=== PATIENT | male | born 1945 | race Caucasian/White ===

== ENCOUNTER 2017-03-11 09:02 | Inpatient (IN) | payer OTHER ==
[~2017-03-11] VITALS: Ht 170.2 cm; Wt 90.5 kg
[~2017-03-11 09:02] MED LIST: CSD50 PO; FLM4 PO; NRV5 PO; TYL325X PO; ULT50X PO
[2017-03-11] MEDS ORDERED: ONDANSETRON INJ 2 MG/ML 2 ML VIAL IV STA (09:52)
[2017-03-11] MEDS ORDERED: SODIUM CHLORIDE 0.9% 1000ML 1,000 ML IV STA (09:52)
[2017-03-11] MEDS ORDERED: CEFTRIAXONE SOD INJ 1 GM ADDVIAL IV STA (09:52)
[2017-03-11] MEDS ORDERED: LSX20 PO (09:55)
[2017-03-11 10:08] LABS: BASO % 0.5 %; BASO ABS # 0.02 K/uL (0-0.2); COMPLETE YES; EOS % 0.5 %; HEMATOCRIT 36.5 % (42-52); IG% 0.5 %; LYMPH % 18.1 %; MEAN CELL VOLUME 84.9 fL (80-100); MEAN CORPUSCULAR HEMOGLOBIN 29.5 pg (25-34); MEAN CORPUSCULAR HGB CONC 34.8 g/dl (32-36); MEAN PLATELET VOLUME 11.4 fL (7.4-10.4); MONO % 9.5 %; NEUT % 70.9 %; PLATELET COUNT 136 K/uL (130-400); WHITE BLOOD COUNT 4.41 K/uL (4.8-10.8)
[2017-03-11] MEDS ORDERED: OPTIRAY 320 IV PRN (10:15)
[2017-03-11 10:16] LABS: ALT/SGPT 61 U/L (12-78); BLOOD UREA NITROGEN 15 mg/dl (7-18); BUN/CREATININE RATIO 11.5 (10-20); CALCIUM 8.9 mg/dl (8.5-10.1); CARBON DIOXIDE 22 mmol/L (21-32); CHLORIDE 101 mmol/L (98-107); GLUCOSE 160 mg/dl (70-99); POTASSIUM 3.8 mmol/L (3.5-5.1); SODIUM 131 mmol/L (136-145)
[2017-03-11 10:19] LABS: ALKALINE PHOSPHATASE 63 U/L (45-117); AST/SGOT 57 U/L (15-37)
[2017-03-11 11:18] LABS: URINE APPEARANCE CLEAR (CLEAR); URINE BILIRUBIN NEG (NEG); URINE COLOR DK YELLOW; URINE EPITHELIAL CELL AUTO >30 /lpf (0-5); URINE NITRITE NEG (NEG); URINE PH 5.5 (4.5-7.5); URINE SPECIFIC GRAVITY 1.024 (1.000-1.030); UROBILINOGEN NEG (NEG); ZZURINE CULT IF INDIC CATH NO
[2017-03-11 11:26] LABS: MANUAL MICROSCOPIC REQUIRED? NO; REVIEW REQ? YES
--- NOTE | 2017-03-11 11:34 | DIAGNOSTIC IMAGING REPORT ---
CT SCAN OF THE ABDOMEN AND PELVIS WITH IV CONTRAST CLINICAL HISTORY: Generalized abdominal pain. COMPARISON STUDY: Abdominal CT dated 04/05/2016. TECHNIQUE: Following the IV administration of 92 cc of Optiray 320, CT scan of the abdomen and pelvis is performed from the lung bases to the proximal femora. Images are reviewed in the axial, sagittal, and coronal planes. IV contrast was administered without complication. Automated dose control exposure was utilized. A dose lowering technique was utilized adhering to the principles of ALARA. CT DOSE: 741.06 mGy.cm FINDINGS: Lung bases: The heart is normal in size and without pericardial effusion. There are coronary artery calcifications. There are scattered calcified granulomas. No airspace consolidation or pleural effusion is seen at the lung bases. Calcified mediastinal lymph nodes are partially imaged. There is a tiny hiatal hernia. Liver: The contrast-enhanced liver is enlarged, measuring 22.4 cm in length. The liver demonstrates diffusely diminished attenuation consistent with severe hepatic steatosis. There is no intrahepatic biliary ductal dilatation. The hepatic veins and portal veins are patent. Gallbladder: There are numerous calcified gallstones. Spleen: Normal in size and attenuation. There are calcified splenic granulomas. Pancreas: Unremarkable. Adrenal glands: Unremarkable. Kidneys: The contrast enhanced kidneys demonstrate mild cortical atrophy and are without hydronephrosis. The kidneys enhance symmetrically. Bilateral renal cysts measure up to 4.9 cm. Additional subcentimeter cortical hypodensities also likely represent cysts but are too small for definitive characterization. There is bilateral perinephric stranding, right greater than left. Trace perinephric fluid is seen on the right. Abdominal vasculature: The abdominal aorta is normal in course and caliber noting mild atherosclerotic calcification. Bowel: The small bowel and colon are normal in course and caliber. The appendix is well-visualized and normal. Peritoneum: There is no intraperitoneal free air or abdominal ascites. Lymphadenopathy: Right pelvic sidewall lymphadenopathy is identified. A node on image #[id number] measures 1.9 cm in short axis. No retroperitoneal lymphadenopathy is seen. Pelvic viscera: The bladder is decompressed around a Kumari catheter. Foci of intraluminal gas are noted and likely wall thickening is nonspecific. The prostate gland is heterogeneous. Skeletal structures: The skeletal structures are osteopenic. There is moderate lumbosacral spondylosis and scoliosis. 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 The largest lesions are seen in the bodies of T12, L2, and L4. Lesions are also seen in the lower ribs, in the bony pelvis. IMPRESSION: 1. The bladder is decompressed around a Kumari catheter. Bladder wall thickening is nonspecific and there are foci of intraluminal gas which may be related to instrumentation. Correlate clinically and with urinalysis for evidence of cystitis. 2. There is bilateral perinephric stranding, right greater than left as well as trace perinephric fluid. Correlate clinically and with urinalysis for evidence of ascending urinary tract infection. 3. 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 4. There is right pelvic sidewall lymphadenopathy. Retroperitoneal lymphadenopathy has improved from 04/05/2016. 5. Hepatomegaly and severe hepatic steatosis. 6. Cholelithiasis. 7. Additional findings as above. Electronically signed by: Jose Antonio Baez M.D. 03/11/2017 11:32 AM Dictated Date/Time: 03/11/2017 11:03 AM
[2017-03-11 12:18] VITALS: O2SAT 94; Ht 170.2 cm; Wt 90.5 kg
--- NOTE | 2017-03-11 12:31 | History and Physical ---
History & Physical Date & Time of Service: Mar 11, 2017 at 12:26 Chief Complaint: Gall Stone,Kidney Pain Primary Care Physician: Adiel Graff D.O. History of Present Illness Source: patient 72 y/o M Hx prostate CA which is untreated, chronic urinary outlet obstruction and an indwelling Kumari. Pt presents with progressive abdominal pain, unconfirmed fevers and nausea with poor PO intake. Imaging Past Medical/Surgical History Medical Problems: (1) Prostate cancer Status: Chronic Family History Hypertension Kidney disease Kidney stones Social History Smoking Status: Never Smoker Drug Use: none Marital Status: Occupational Status: employed Allergies Coded Allergies: No Known Allergies (Unverified , 03/11/17) Home Medications Scheduled Furosemide (Furosemide), 20 MG PO DAILY Physical Exam Vital Signs Date Time Temp Pulse Resp B/P (MAP) Pulse Ox O2 Delivery O2 Flow Rate FiO2 03/11/17 10:34 73 26 116/65 94 03/11/17 09:05 36.9 87 18 125/75 95 Room Air Diagnostics Laboratory Results Results Past 24 Hours Test 03/11/17 09:25 03/11/17 10:14 03/11/17 11:05 Range/Units White Blood Count 4.41 4.8-10.8 K/uL Red Blood Count 4.30 4.7-6.1 M/uL Hemoglobin 12.7 14.0-18.0 g/dL Hematocrit 36.5 42-52 % Mean Corpuscular Volume 84.9 80-100 fL Mean Corpuscular Hemoglobin 29.5 25-34 pg Mean Corpuscular Hemoglobin Concent 34.8 32-36 g/dl Platelet Count 136 130-400 K/uL Mean Platelet Volume 11.4 7.4-10.4 fL Neutrophils (%) (Auto) 70.9 % Lymphocytes (%) (Auto) 18.1 % Monocytes (%) (Auto) 9.5 % Eosinophils (%) (Auto) 0.5 % Basophils (%) (Auto) 0.5 % Neutrophils # (Auto) 3.13 1.4-6.5 K/uL Lymphocytes # (Auto) 0.80 1.2-3.4 K/uL Monocytes # (Auto) 0.42 0.11-0.59 K/uL Eosinophils # (Auto) 0.02 0-0.5 K/uL Basophils # (Auto) 0.02 0-0.2 K/uL RDW Standard Deviation 41.6 36.4-46.3 fL RDW Coefficient of Variation 13.4 11.5-14.5 % Immature Granulocyte % (Auto) 0.5 % Immature Granulocyte # (Auto) 0.02 0.00-0.02 K/uL Sodium Level 131 136-145 mmol/L Potassium Level 3.8 3.5-5.1 mmol/L Chloride Level 101 98-107 mmol/L Carbon Dioxide Level 22 21-32 mmol/L Anion Gap 8.0 3-11 mmol/L Blood Urea Nitrogen 15 7-18 mg/dl Creatinine 1.30 0.60-1.40 mg/dl Estimated GFR () 62.3 Estimated GFR (Non- 53.8 BUN/Creatinine Ratio 11.5 10-20 Random Glucose 160 70-99 mg/dl Calcium Level 8.9 8.5-10.1 mg/dl Total Bilirubin 0.5 0.2-1 mg/dl Direct Bilirubin 0.2 0-0.2 mg/dl Aspartate Amino Transf (AST/SGOT) 57 15-37 U/L Alanine Aminotransferase (ALT/SGPT) 61 12-78 U/L Alkaline Phosphatase 63 45-117 U/L Total Protein 7.4 6.4-8.2 gm/dl Albumin 3.1 3.4-5.0 gm/dl Lipase 145 73-393 U/L Bedside Lactic Acid Venous 1.02 0.90-1.70 mmol/L Urine Color DK YELLOW Urine Appearance CLEAR CLEAR Urine pH 5.5 4.5-7.5 Urine Specific [place] 1.024 1.000-1.030 Urine Protein 1+ NEG Urine Glucose (UA) NEG NEG Urine Ketones NEG NEG Urine Occult Blood 1+ NEG Urine Nitrite NEG NEG Urine Bilirubin NEG NEG Urine Urobilinogen NEG NEG Urine Leukocyte Esterase SMALL NEG Urine WBC (Auto) 5-10 0-5 /hpf Urine RBC (Auto) 5-10 0-4 /hpf Urine Hyaline Casts (Auto) 5-10 0-5 /lpf Urine Epithelial Cells (Auto) >30 0-5 /lpf Urine Bacteria (Auto) NEG NEG Urine Renal Epithelial Cells 0-5 0-5 /lpf Diagnostic Radiology CT Pelvis 1. The bladder is decompressed around a Kumari catheter. Bladder wall thickening is nonspecific and there are foci of intraluminal gas which may be related to instrumentation. Correlate clinically and with urinalysis for evidence of cystitis. 2. There is bilateral perinephric stranding, right greater than left as well as trace perinephric fluid. Correlate clinically and with urinalysis for evidence of ascending urinary tract infection. 3. 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 4. There is right pelvic sidewall lymphadenopathy. Retroperitoneal lymphadenopathy has improved from 04/05/2016. 5. Hepatomegaly and severe hepatic steatosis. 6. Cholelithiasis. Impression Advanced Directives Existing Living Will: No Existing Power of Nuisance Animal Damage Control Agent: No
[2017-03-11] MEDS ORDERED: MAGNESIUM HYDROXIDE SUSP 30 ML UDC PO PRN (12:45)
[2017-03-11] MEDS ORDERED: ONDANSETRON INJ 2 MG/ML 2 ML VIAL IV PRN (12:45)
[2017-03-11] MEDS ORDERED: POLYETHYLENE (MIRALAX) 17 GM PACK PO PRN (12:45)
[2017-03-11] MEDS ORDERED: ALUMINUM/MAGNESIUM/SIMETH (MAALOX MAX) 30 ML UDC PO PRN (12:45)
--- NOTE | 2017-03-11 12:57 | History and Physical ---
History & Physical Date & Time of Service: Mar 11, 2017 at 12:45 Chief Complaint: Gall Stone,Kidney Pain Primary Care Physician: Adiel Graff D.O. History of Present Illness 72 y/o M Hx prostate CA which is untreated, chronic urinary outlet obstruction and an indwelling Kumari. Pt presents with progressive b/l, lower abdominal and flank pain, unconfirmed fevers and nausea with poor PO intake. A CT abdomen reveals b/l perinephric stranding in addition to confirmed metastatic prostate CA. Past Medical/Surgical History Medical Problems: (1) Prostate cancer Status: Chronic Family History Hypertension Kidney disease Kidney stones Social History Smoking Status: Never Smoker Drug Use: none Marital Status: Occupational Status: employed Allergies Coded Allergies: No Known Allergies (Unverified , 03/11/17) Home Medications Scheduled Furosemide (Furosemide), 20 MG PO DAILY Review of Systems Constitutional: + sweats, No fever, No chills Eyes: No worsening of vision ENT: No hearing loss, No unusual epistaxis, No nasal symptoms Respiratory: No cough, No wheezing Cardiovascular: No chest pain, No orthopnea, No PND Abdomen: + pain, + nausea, + vomiting, No diarrhea Musculoskeletal: + problem reported (BAck/flank pain), No joint pain Genitourinary - Male: + dysuria, No hematuria Neurologic: + weakness, No memory loss, No paralysis Psychiatric: No depression symptoms Endocrine: No fatigue Hematologic / Lymphatic: No abnormal bleeding/bruising Integumentary: No rash Allergic / Immunologic: No environmental allergies Physical Exam Vital Signs Date Time Temp Pulse Resp B/P (MAP) Pulse Ox O2 Delivery O2 Flow Rate FiO2 03/11/17 10:34 73 26 116/65 94 03/11/17 09:05 36.9 87 18 125/75 95 Room Air General Appearance: WD/WN, no apparent distress, + pertinent finding ( overweight elderly male who is hard of hearing) Head: normocephalic Eyes: normal inspection, EOMI ENT: normal ENT inspection, pharynx normal, + nasal congestion Neck: supple, no JVD Respiratory/Chest: chest non-tender, lungs clear, normal breath sounds Cardiovascular: regular rate, rhythm, no edema, no gallop, no JVD, no murmur, normal peripheral pulses Abdomen/GI: normal bowel sounds, soft, + pertinent finding (Tender in lower quadrants bl) Back: normal inspection, + pertinent finding (R sided CVA tenderness ) Extremities/Musculoskelatal: normal inspection Neurologic/Psych: service supervisor II-XII nml as tested, no motor/sensory deficits, alert, normal mood/affect, normal reflexes, oriented x 3 Skin: normal color, warm/dry, no rash Diagnostics Laboratory Results Results Past 24 Hours Test 03/11/17 09:25 03/11/17 10:14 03/11/17 11:05 Range/Units White Blood Count 4.41 4.8-10.8 K/uL Red Blood Count 4.30 4.7-6.1 M/uL Hemoglobin 12.7 14.0-18.0 g/dL Hematocrit 36.5 42-52 % Mean Corpuscular Volume 84.9 80-100 fL Mean Corpuscular Hemoglobin 29.5 25-34 pg Mean Corpuscular Hemoglobin Concent 34.8 32-36 g/dl Platelet Count 136 130-400 K/uL Mean Platelet Volume 11.4 7.4-10.4 fL Neutrophils (%) (Auto) 70.9 % Lymphocytes (%) (Auto) 18.1 % Monocytes (%) (Auto) 9.5 % Eosinophils (%) (Auto) 0.5 % Basophils (%) (Auto) 0.5 % Neutrophils # (Auto) 3.13 1.4-6.5 K/uL Lymphocytes # (Auto) 0.80 1.2-3.4 K/uL Monocytes # (Auto) 0.42 0.11-0.59 K/uL Eosinophils # (Auto) 0.02 0-0.5 K/uL Basophils # (Auto) 0.02 0-0.2 K/uL RDW Standard Deviation 41.6 36.4-46.3 fL RDW Coefficient of Variation 13.4 11.5-14.5 % Immature Granulocyte % (Auto) 0.5 % Immature Granulocyte # (Auto) 0.02 0.00-0.02 K/uL Sodium Level 131 136-145 mmol/L Potassium Level 3.8 3.5-5.1 mmol/L Chloride Level 101 98-107 mmol/L Carbon Dioxide Level 22 21-32 mmol/L Anion Gap 8.0 3-11 mmol/L Blood Urea Nitrogen 15 7-18 mg/dl Creatinine 1.30 0.60-1.40 mg/dl Estimated GFR () 62.3 Estimated GFR (Non- 53.8 BUN/Creatinine Ratio 11.5 10-20 Random Glucose 160 70-99 mg/dl Calcium Level 8.9 8.5-10.1 mg/dl Total Bilirubin 0.5 0.2-1 mg/dl Direct Bilirubin 0.2 0-0.2 mg/dl Aspartate Amino Transf (AST/SGOT) 57 15-37 U/L Alanine Aminotransferase (ALT/SGPT) 61 12-78 U/L Alkaline Phosphatase 63 45-117 U/L Total Protein 7.4 6.4-8.2 gm/dl Albumin 3.1 3.4-5.0 gm/dl Lipase 145 73-393 U/L Bedside Lactic Acid Venous 1.02 0.90-1.70 mmol/L Urine Color DK YELLOW Urine Appearance CLEAR CLEAR Urine pH 5.5 4.5-7.5 Urine Specific [place] 1.024 1.000-1.030 Urine Protein 1+ NEG Urine Glucose (UA) NEG NEG Urine Ketones NEG NEG Urine Occult Blood 1+ NEG Urine Nitrite NEG NEG Urine Bilirubin NEG NEG Urine Urobilinogen NEG NEG Urine Leukocyte Esterase SMALL NEG Urine WBC (Auto) 5-10 0-5 /hpf Urine RBC (Auto) 5-10 0-4 /hpf Urine Hyaline Casts (Auto) 5-10 0-5 /lpf Urine Epithelial Cells (Auto) >30 0-5 /lpf Urine Bacteria (Auto) NEG NEG Urine Renal Epithelial Cells 0-5 0-5 /lpf Diagnostic Radiology CT abdomen 1. The bladder is decompressed around a Kumari catheter. Bladder wall thickening is nonspecific and there are foci of intraluminal gas which may be related to instrumentation. Correlate clinically and with urinalysis for evidence of cystitis. 2. There is bilateral perinephric stranding, right greater than left as well as trace perinephric fluid. Correlate clinically and with urinalysis for evidence of ascending urinary tract infection. 3. 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 4. There is right pelvic sidewall lymphadenopathy. Retroperitoneal lymphadenopathy has improved from 04/05/2016. 5. Hepatomegaly and severe hepatic steatosis. 6. Cholelithiasis. Impression Assessment and Plan 72 y/o M Hx prostate CA which is untreated, chronic urinary outlet obstruction and an indwelling Kumari. Pt presents with progressive b/l, lower abdominal and flank pain, unconfirmed fevers and nausea with poor PO intake. A CT abdomen reveals b/l perinephric stranding in addition to confirmed metastatic prostate CA. 1) Possible b/l pyelonephritis - he does not have a white count or fever although he does have b/l flank arredondo and a marginally + UA. He had complained of nausea and vomiting so that we will place him on IV antibiotics pending culture results. He has a functional chronic Kumari. He missed a recent Urology appt and has requested to see his urologist who we have consulted. 2) Prostate CA - has decided not to treat this. 3) HTN - Pt takes daily Lasix only - this is held as he is receiving IVF. Full code - Heparin prophylaxis Total time for this admit including review of labs, meds, imaging, records - discussion with pt and ER attending - 37 min Advanced Directives Existing Living Will: No Existing Power of Psychiatric Tech: No VTE Prophylaxis VTE Risk Assessment Done? Y/N: Yes Risk Level: Moderate
[2017-03-11 14:21] VITALS: BP 129/71; PULSE 81; TEMP 37.6; O2SAT 93
[2017-03-11] MEDS: SODIUM CHLORIDE 0.9% 1000ML 1,000 ML IV SCH ×2 (14:30→23:03)
--- NOTE | 2017-03-11 15:16 | EMERGENCY ROOM VISIT NOTE ---
History Report prepared by Jayesh: Adore Wright Under the Supervision of: Dr. Eric Tellez D.O. First contact with patient: 09:34 Chief Complaint: ABDOMINAL PAIN Stated Complaint: GALL STONE,KIDNEY PAIN Nursing Triage Summary: pt c/o right lower quad pain and bilateral flank pain, pt has a indwelling cath that has been having less output History of Present Illness The patient is a 72 year old male who presents to the Emergency Room with complaints of worsening upper abdominal pain for the past few days. The patient states that he has been evaluated for this pain in the past. He had a CT scan done about a year ago that revealed gallstones. He states that he has "not been feeling well for some time," but over the past few days he has been more nauseated. He has not been eating much and he has had intermittent vomiting. He has been diaphoretic but has not checked his temperature. The patient states that his last bowel movement was 2-3 days ago. Pt denies headache, rhinorrhea, cough, fevers, chest pain, diarrhea, pain with urination, and melena. He has chronic shortness of breath, but denies any new shortness of breath. The patient has a history of prostate cancer. He is not receiving any chemotherapy for this cancer. He has a chronic indwelling catheter which he typically changes himself every 4 weeks. He most recently changed this catheter 2 weeks ago. Source of History: patient Onset: a few days ago Position: abdomen Timing: worsening Associated Symptoms: + diaphoresis, + nausea, + vomiting, No fevers, No headache, No cough, No chest pain, No SOB, No melena, No diarrhea, No urinary symptoms Review of Systems See HPI for pertinent positives & negatives. A total of 10 systems reviewed and were otherwise negative. 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 (7) Pyelonephritis e Family History Hypertension Kidney disease Kidney stones Social History Smoking Status: Never Smoker Drug Use: none Marital Status: Housing Status: lives with family Occupation Status: employed Current/Historical Medications Scheduled Furosemide (Furosemide), 20 MG PO DAILY Allergies Coded Allergies: No Known Allergies (Unverified , 03/11/17) Physical Exam Vital Signs Date Time Temp Pulse Resp B/P (MAP) Pulse Ox O2 Delivery O2 Flow Rate FiO2 03/11/17 12:18 94 Room Air 03/11/17 10:34 73 26 116/65 94 03/11/17 09:05 36.9 87 18 125/75 95 Room Air Physical Exam GENERAL: alert, sitting up in bed, disheveled, slightly ill appearing, well nourished, no distress, non-toxic EYE EXAM: normal conjunctiva OROPHARYNX: no exudate, no erythema, lips, buccal mucosa, and tongue normal and mucous membranes are moist NECK: supple, no nuchal rigidity, no adenopathy, non-tender LUNGS: Clear to auscultation. Normal chest wall mechanics HEART: no murmurs, S1 normal and S2 normal ABDOMEN: abdomen soft, tender to palpation in the bilateral upper abdomen, normo -active bowel sounds, no masses, no rebound or guarding. : Normal external genitalia, uncircumcised. Kumari in place with sediment in Kumari bag. BACK: Back is symmetrical on inspection and there is no deformity, no midline tenderness, no CVA tenderness. SKIN: no rashes and no bruising UPPER EXTREMITIES: upper extremities are grossly normal. LOWER EXTREMITIES: No pitting edema. NEURO EXAM: Normal sensorium, cranial nerves II-XII grossly intact, normal speech, no gross weakness of arms, no gross weakness of legs. Medical Decision & Procedures ER Provider Diagnostic Interpretation: Radiology results as stated below per my review and the radiologist's interpretation: CT SCAN OF THE ABDOMEN AND PELVIS WITH IV CONTRAST CLINICAL HISTORY: Generalized abdominal pain. COMPARISON STUDY: Abdominal CT dated 04/05/2016. TECHNIQUE: Following the IV administration of 92 cc of Optiray 320, CT scan of the abdomen and pelvis is performed from the lung bases to the proximal femora. Images are reviewed in the axial, sagittal, and coronal planes. IV contrast was administered without complication. Automated dose control exposure was utilized. A dose lowering technique was utilized adhering to the principles of ALARA. CT DOSE: 741.06 mGy.cm FINDINGS: Lung bases: The heart is normal in size and without pericardial effusion. There are coronary artery calcifications. There are scattered calcified granulomas. No airspace consolidation or pleural effusion is seen at the lung bases. Calcified mediastinal lymph nodes are partially imaged. There is a tiny hiatal hernia. Liver: The contrast-enhanced liver is enlarged, measuring 22.4 cm in length. The liver demonstrates diffusely diminished attenuation consistent with severe hepatic steatosis. There is no intrahepatic biliary ductal dilatation. The hepatic veins and portal veins are patent. Gallbladder: There are numerous calcified gallstones. Spleen: Normal in size and attenuation. There are calcified splenic granulomas. Pancreas: Unremarkable. Adrenal glands: Unremarkable. Kidneys: The contrast enhanced kidneys demonstrate mild cortical atrophy and are without hydronephrosis. The kidneys enhance symmetrically. Bilateral renal cysts measure up to 4.9 cm. Additional subcentimeter cortical hypodensities also likely represent cysts but are too small for definitive characterization. There is bilateral perinephric stranding, right greater than left. Trace perinephric fluid is seen on the right. Abdominal vasculature: The abdominal aorta is normal in course and caliber noting mild atherosclerotic calcification. Bowel: The small bowel and colon are normal in course and caliber. The appendix is well-visualized and normal. Peritoneum: There is no intraperitoneal free air or abdominal ascites. Lymphadenopathy: Right pelvic sidewall lymphadenopathy is identified. A node on image #[id number] measures 1.9 cm in short axis. No retroperitoneal lymphadenopathy is seen. Pelvic viscera: The bladder is decompressed around a Kumari catheter. Foci of intraluminal gas are noted and likely wall thickening is nonspecific. The prostate gland is heterogeneous. Skeletal structures: The skeletal structures are osteopenic. There is moderate lumbosacral spondylosis and scoliosis. 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 The largest lesions are seen in the bodies of T12, L2, and L4. Lesions are also seen in the lower ribs, in the bony pelvis. IMPRESSION: 1. The bladder is decompressed around a Kumari catheter. Bladder wall thickening is nonspecific and there are foci of intraluminal gas which may be related to instrumentation. Correlate clinically and with urinalysis for evidence of cystitis. 2. There is bilateral perinephric stranding, right greater than left as well as trace perinephric fluid. Correlate clinically and with urinalysis for evidence of ascending urinary tract infection. 3. 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 4. There is right pelvic sidewall lymphadenopathy. Retroperitoneal lymphadenopathy has improved from 04/05/2016. 5. Hepatomegaly and severe hepatic steatosis. 6. Cholelithiasis. 7. Additional findings as above. Electronically signed by: Jose Antonio Baez M.D. 03/11/2017 11:32 AM Dictated Date/Time: 03/11/2017 11:03 AM Laboratory Results 03/11/17 09:25 Red Blood Count 4.30, Mean Corpuscular Volume 84.9, Mean Corpuscular Hemoglobin 29.5, Mean Corpuscular Hemoglobin Concent 34.8, Mean Platelet Volume 11.4, Neutrophils (%) (Auto) 70.9, Lymphocytes (%) (Auto) 18.1, Monocytes (%) (Auto) 9.5, Eosinophils (%) (Auto) 0.5, Basophils (%) (Auto) 0.5, Neutrophils # (Auto) 3.13, Lymphocytes # (Auto) 0.80, Monocytes # (Auto) 0.42, Eosinophils # (Auto) 0.02, Basophils # (Auto) 0.02 03/11/17 09:25 Test 03/11/17 09:25 03/11/17 10:14 03/11/17 11:05 White Blood Count 4.41 K/uL (4.8-10.8) Red Blood Count 4.30 M/uL (4.7-6.1) Hemoglobin 12.7 g/dL (14.0-18.0) Hematocrit 36.5 % (42-52) Mean Corpuscular Volume 84.9 fL (80-100) Mean Corpuscular Hemoglobin 29.5 pg (25-34) Mean Corpuscular Hemoglobin Concent 34.8 g/dl (32-36) Platelet Count 136 K/uL (130-400) Mean Platelet Volume 11.4 fL (7.4-10.4) Neutrophils (%) (Auto) 70.9 % Lymphocytes (%) (Auto) 18.1 % Monocytes (%) (Auto) 9.5 % Eosinophils (%) (Auto) 0.5 % Basophils (%) (Auto) 0.5 % Neutrophils # (Auto) 3.13 K/uL (1.4-6.5) Lymphocytes # (Auto) 0.80 K/uL (1.2-3.4) Monocytes # (Auto) 0.42 K/uL (0.11-0.59) Eosinophils # (Auto) 0.02 K/uL (0-0.5) Basophils # (Auto) 0.02 K/uL (0-0.2) RDW Standard Deviation 41.6 fL (36.4-46.3) RDW Coefficient of Variation 13.4 % (11.5-14.5) Immature Granulocyte % (Auto) 0.5 % Immature Granulocyte # (Auto) 0.02 K/uL (0.00-0.02) Anion Gap 8.0 mmol/L (3-11) Estimated GFR () 62.3 Estimated GFR (Non- 53.8 BUN/Creatinine Ratio 11.5 (10-20) Calcium Level 8.9 mg/dl (8.5-10.1) Total Bilirubin 0.5 mg/dl (0.2-1) Direct Bilirubin 0.2 mg/dl (0-0.2) Aspartate Amino Transf (AST/SGOT) 57 U/L (15-37) Alanine Aminotransferase (ALT/SGPT) 61 U/L (12-78) Alkaline Phosphatase 63 U/L (45-117) Total Protein 7.4 gm/dl (6.4-8.2) Albumin 3.1 gm/dl (3.4-5.0) Lipase 145 U/L (73-393) Bedside Lactic Acid Venous 1.02 mmol/L (0.90-1.70) Urine Color DK YELLOW Urine Appearance CLEAR (CLEAR) Urine pH 5.5 (4.5-7.5) Urine Specific [place] 1.024 (1.000-1.030) Urine Protein 1+ (NEG) Urine Glucose (UA) NEG (NEG) Urine Ketones NEG (NEG) Urine Occult Blood 1+ (NEG) Urine Nitrite NEG (NEG) Urine Bilirubin NEG (NEG) Urine Urobilinogen NEG (NEG) Urine Leukocyte Esterase SMALL (NEG) Urine WBC (Auto) 5-10 /hpf (0-5) Urine RBC (Auto) 5-10 /hpf (0-4) Urine Hyaline Casts (Auto) 5-10 /lpf (0-5) Urine Epithelial Cells (Auto) >30 /lpf (0-5) Urine Bacteria (Auto) NEG (NEG) Urine Renal Epithelial Cells 0-5 /lpf (0-5) Laboratory results per my review. Medications Administered Medications (Trade) Dose Ordered Sig/Brea Route Start Time Stop Time Status Last Admin Dose Admin Ceftriaxone Sodium (Rocephin Inj) 1 gm NOW STAT IV 03/11/17 09:52 03/11/17 09:54 DC 03/11/17 10:31 1 GM Sodium Chloride 1,000 ml @ 999 mls/hr Q1H1M STAT IV 03/11/17 09:52 03/11/17 10:52 DC 03/11/17 10:30 999 MLS/HR Ondansetron HCl (Zofran Inj) 4 mg NOW STAT IV 03/11/17 09:52 03/11/17 09:54 DC 03/11/17 10:31 4 MG ED Course ED COURSE: Vital signs were reviewed and showed normal. The patients medical record was reviewed The above diagnostic studies were performed and reviewed. ED treatments and interventions as stated above. 0940: The patient was evaluated in room A4B. A complete history and physical examination was performed. 0952: Zofran 4 mg IV, NSS 1000 ml @ 999 mls/hr IV, Rocephin 1 gm IV 1124: I updated the patient and his family. 1156: Upon reevaluation, the patient is resting comfortably. I discussed my findings with the patient and he understands and agrees with the treatment plan. Based on the patients age, coexisting illnesses, exam and lab findings the decision to treat as an inpatient was made. The patient remained stable while under my care. The patient will be evaluated for further management. 1159: I spoke with Dr. Ivory. We discussed the patient's case. The patient will be evaluated by the [facility] for further management. Medical Decision Differential diagnoses includes but is not limited to gastritis, peptic ulcer disease, GERD, gallbladder disease, pancreatitis, small bowel obstruction, acute coronary syndrome, pericarditis, ischemic bowel, irritable bowel disease, irritable bowel syndrome, appendicitis, diverticulitis, malignancy, hernia, urinary tract infection, torsion, perforation, trauma, infectious. Patient is a 72-year-old male since the ER for chills associated with diffuse weakness and mild back pain. Notes of the back pain is new and located on both sides of his lower back. He does have a chronic indwelling Kumari. CBC shows a white count 4000. BMP all LFTs, bilirubin lipase is unremarkable. UA has esterase or white cells but a large amount of epithelial cells. CT shows stranding around the bilateral kidneys. He does complain of back pain associated with chills. With the indwelling Kumari favor this is most suggestive of pyelonephritis. Patient was updated at bedside. He was given fluids and Rocephin. He is admitted to internal medicine for further workup. Medication Reconcilliation Current Medication List: was personally reviewed by me Blood Pressure Screening Patient's blood pressure: Normal blood pressure Consults Time Called: 1155 Consulting Physician: Dr. Ivory Returned Call: [address] Ivory. We discussed the patient's case. The patient will be evaluated by the [facility] for further management. Impression Primary Impression: Pyelonephritis Scribe Attestation The scribe's documentation has been prepared under my direction and personally reviewed by me in its entirety. I confirm that the note above accurately reflects all work, treatment, procedures, and medical decision making performed by me. Departure Information Dispostion Being Evaluated By Hospitalist Adiel Cat D.O. (PCP) Patient Instructions My [facility]
[2017-03-11 15:32] LABS: INR 1.1 (0.9-1.1)
[2017-03-11 15:59] VITALS: BP 105/64; PULSE 88; TEMP 38; O2SAT 94
[2017-03-11] MEDS: HEPARIN SOD 5000 UNIT/0.5 ML CARP SQ SCH ×2 (17:08→23:05)
[2017-03-11 17:44] VITALS: TEMP 38.2
[2017-03-11] MEDS: ACETAMINOPHEN 325 MG TAB PO PRN ×2 (17:45→23:22)
[2017-03-11 19:27] VITALS: BP 98/62; PULSE 82; TEMP 37.5; O2SAT 92
[2017-03-12 00:01] VITALS: BP 113/68; PULSE 72; TEMP 37.8; O2SAT 95
[2017-03-12 03:57] VITALS: BP 97/64; PULSE 67; TEMP 37.2; O2SAT 95
[2017-03-12 06:41] LABS: HEMATOCRIT 35.6 % (42-52); MEAN CORPUSCULAR HEMOGLOBIN 29.2 pg (25-34); MEAN PLATELET VOLUME 11.1 fL (7.4-10.4); PLATELET COUNT 112 K/uL (130-400); RED BLOOD COUNT 4.14 M/uL (4.7-6.1); WHITE BLOOD COUNT 4.69 K/uL (4.8-10.8)
[2017-03-12 07:03] LABS: BUN/CREATININE RATIO 12.1 (10-20); CALCIUM 8.4 mg/dl (8.5-10.1); CREATININE 1.1 mg/dl (0.60-1.40); MAGNESIUM 2.2 mg/dl (1.8-2.4); POTASSIUM 3.9 mmol/L (3.5-5.1)
[2017-03-12] MEDS: ACETAMINOPHEN 325 MG TAB PO PRN ×2 (07:48→15:43)
[2017-03-12] MEDS: HEPARIN SOD 5000 UNIT/0.5 ML CARP SQ SCH ×2 (07:54→16:40)
[2017-03-12] MEDS ORDERED: CEFTRIAXONE SOD INJ 1 GM in DEXTROSE 5% ADD-VANTAGE 50ML 50 ML IV SCH (08:00)
[2017-03-12 09:17] VITALS: BP 102/62; PULSE 83; TEMP 37.6; O2SAT 94
[2017-03-12 11:18] VITALS: BP 96/55; PULSE 81; TEMP 37.6; O2SAT 91
[2017-03-12 15:04] VITALS: BP 99/64; PULSE 75; TEMP 37.3; O2SAT 95
[2017-03-12] MEDS ORDERED: MoRPHine SULFATE 4 MG/ML 1 ML CARP\\VIAL IV PRN (16:30)
[2017-03-12] MEDS: SODIUM CHLORIDE 0.9% 1000ML 1,000 ML IV SCH (16:38)
[2017-03-12] MEDS: MoRPHine SULFATE 2 MG/ML CARP IV PRN ×2 (16:40→21:08)
[2017-03-12] MEDS ORDERED: PIPERACILL/TAZOBAC IV 4.5 GM in DEXTROSE 5% 100ML 100 ML IV SCH (17:00)
[2017-03-12] MEDS ORDERED: PIPERACILL/TAZOBAC CONSULT ACTIVE PRN (17:00)
--- NOTE | 2017-03-12 17:44 | Progress Note ---
Subjective Date of Service: Mar 12, 2017. Subjective Upon visiting the patient has family is at the bedside he was cold clammy and slightly diaphoretic he states he is having some back pain. He was able tolerate his intake and only had some Tylenol today for pain control. His pain was 8 out of 10 and was bilateral low back it was dull and achy worse with movement and relieved by resting Problem List Medical Problems: (1) Abdominal pain Status: Acute (2) Bilateral hydronephrosis Status: Acute (3) Bladder outlet obstruction Status: Acute (4) Enlarged prostate Status: Acute (5) Renal failure Status: Acute (6) Renal insufficiency Status: Acute Review of Systems Constitutional: + weakness, No fever, No chills Respiratory: No cough, No shortness of breath, No dyspnea on exertion Cardiac: No chest pain, No edema Abdomen: + pain, No nausea, No vomiting, No diarrhea Musculoskeletal: + joint pain, + muscle pain Male : No dysuria, No urinary frequency (has a Kumari) Objective Vital Signs Date Time Temp Pulse Resp B/P (MAP) Pulse Ox O2 Delivery O2 Flow Rate FiO2 03/12/17 03:57 37.2 67 18 97/64 (75) 95 Room Air 03/12/17 00:01 37.8 72 18 113/68 (83) 95 Room Air 03/12/17 00:01 Room Air 03/11/17 20:00 Room Air 03/11/17 19:27 37.5 82 18 98/62 (74) 92 Room Air 03/11/17 17:44 38.2 03/11/17 15:59 38.0 88 20 105/64 (78) 94 Room Air 03/11/17 14:21 37.6 81 18 129/71 (90) 93 03/11/17 12:44 80 18 147/78 99 Room Air 03/11/17 12:18 94 Room Air 03/11/17 10:34 73 26 116/65 94 Physical Exam General Appearance: WD/WN, + moderate distress, + obese Eyes: PERRL, EOMI Respiratory/Chest: chest non-tender, lungs clear, + decreased breath sounds ( due to pain) Cardiovascular: regular rate, rhythm, no murmur Abdomen: normal bowel sounds, soft, + tenderness (to palpation) Extremities: no pedal edema, no calf tenderness Neurologic/Psychiatric: alert, oriented x 3 Skin: normal color, warm/dry, no rash Laboratory Results Last 24 Hours Test 03/11/17 09:25 03/11/17 10:14 03/11/17 11:05 03/12/17 06:15 White Blood Count 4.41 K/uL 4.69 K/uL Red Blood Count 4.30 M/uL 4.14 M/uL Hemoglobin 12.7 g/dL 12.1 g/dL Hematocrit 36.5 % 35.6 % Mean Corpuscular Volume 84.9 fL 86.0 fL Mean Corpuscular Hemoglobin 29.5 pg 29.2 pg Mean Corpuscular Hemoglobin Concent 34.8 g/dl 34.0 g/dl Platelet Count 136 K/uL 112 K/uL Mean Platelet Volume 11.4 fL 11.1 fL Neutrophils (%) (Auto) 70.9 % Lymphocytes (%) (Auto) 18.1 % Monocytes (%) (Auto) 9.5 % Eosinophils (%) (Auto) 0.5 % Basophils (%) (Auto) 0.5 % Neutrophils # (Auto) 3.13 K/uL Lymphocytes # (Auto) 0.80 K/uL Monocytes # (Auto) 0.42 K/uL Eosinophils # (Auto) 0.02 K/uL Basophils # (Auto) 0.02 K/uL RDW Standard Deviation 41.6 fL 43.8 fL RDW Coefficient of Variation 13.4 % 13.8 % Immature Granulocyte % (Auto) 0.5 % Immature Granulocyte # (Auto) 0.02 K/uL Prothrombin Time 12.0 SECONDS Prothromb Time International Ratio 1.1 Sodium Level 131 mmol/L 135 mmol/L Potassium Level 3.8 mmol/L 3.9 mmol/L Chloride Level 101 mmol/L 105 mmol/L Carbon Dioxide Level 22 mmol/L 24 mmol/L Anion Gap 8.0 mmol/L 6.0 mmol/L Blood Urea Nitrogen 15 mg/dl 13 mg/dl Creatinine 1.30 mg/dl 1.10 mg/dl Estimated GFR () 62.3 76.2 Estimated GFR (Non- 53.8 65.8 BUN/Creatinine Ratio 11.5 12.1 Random Glucose 160 mg/dl 137 mg/dl Calcium Level 8.9 mg/dl 8.4 mg/dl Total Bilirubin 0.5 mg/dl Direct Bilirubin 0.2 mg/dl Aspartate Amino Transf (AST/SGOT) 57 U/L Alanine Aminotransferase (ALT/SGPT) 61 U/L Alkaline Phosphatase 63 U/L Total Protein 7.4 gm/dl Albumin 3.1 gm/dl Lipase 145 U/L Bedside Lactic Acid Venous 1.02 mmol/L Urine Color DK YELLOW Urine Appearance CLEAR Urine pH 5.5 Urine Specific [place] 1.024 Urine Protein 1+ Urine Glucose (UA) NEG Urine Ketones NEG Urine Occult Blood 1+ Urine Nitrite NEG Urine Bilirubin NEG Urine Urobilinogen NEG Urine Leukocyte Esterase SMALL Urine WBC (Auto) 5-10 /hpf Urine RBC (Auto) 5-10 /hpf Urine Hyaline Casts (Auto) 5-10 /lpf Urine Epithelial Cells (Auto) >30 /lpf Urine Bacteria (Auto) NEG Urine Renal Epithelial Cells 0-5 /lpf Est Creatinine Clear Calc Drug Dose 64.2 ml/min Magnesium Level 2.2 mg/dl Assessment and Plan 72 y/o M Hx prostate CA which is untreated, chronic urinary outlet obstruction and an indwelling Kumari. Pt presents with progressive b/l, lower abdominal and flank pain, unconfirmed fevers and nausea with poor PO intake. A CT abdomen reveals b/l perinephric stranding in addition to confirmed metastatic prostate CA. Possible b/l pyelonephritis - IV changed to Zosyn pending culture results. He has a functional chronic Kumari. CT Scan imaging suggestive of b/l pyelonephritis we'll S Dr. Leary about timing of Kumari change patient also has persistent cystic kidneys and may require a prolonged antibiotic course for a complicated UTI present on admission. He had previously seen Dr. Graff for renal failure although his kidney function is good at this time Prostate CA - has decided not to treat this. HTN - Pt takes daily Lasix only - receiving IVF. full code heparin for dvt
[2017-03-12 19:02] VITALS: BP 104/62; PULSE 78; TEMP 37.1; O2SAT 95
[2017-03-12] MEDS: PIPERACILL/TAZOBAC IV 3.375 GM in DEXTROSE 5% 100ML IV SCH (21:07)
[2017-03-13] VITALS (7 sets, daily range): BP systolic 98–109; BP diastolic 53–71; PULSE 75–87; TEMP 36.7–38.4; O2SAT 93–98
[2017-03-13] MEDS: HEPARIN SOD 5000 UNIT/0.5 ML CARP SQ SCH ×3 (01:09→15:41)
[2017-03-13] MEDS: SODIUM CHLORIDE 0.9% 1000ML 1,000 ML IV SCH ×3 (02:30→22:11)
[2017-03-13] MEDS: PIPERACILL/TAZOBAC IV 3.375 GM in DEXTROSE 5% 100ML IV SCH ×3 (06:11→21:38)
[2017-03-13] MEDS: OXYCODONE HCL IR 5 MG TAB (IMMEDIATE RELEASE) PO PRN ×2 (07:38→14:56)
--- NOTE | 2017-03-13 09:22 | Urology Consultation ---
History General Date of Service: Mar 13, 2017. Primary Care Physician: Adiel Graff D.O. Pt seen a urologist before?: Yes (Dr. Yepez) If yes, why?: Prostate cancer History of Present Illness 72 year old male admitted for urinary tract infection pyelonephritis. Reviewed records. He is known to our service for prostate cancer, hx of orchiectomy and was taking casodex which he reports stopping due to stomach upset. He has decided not to seek further treatment and was treating his cancer with herbal remedies. Self changes catheters monthly. About 1 week ago he reports having abdominal pain, decreased appetite, fever, chills. Noted increased sediment in his catheter as well. He changes his catheter regularly without difficulty and changed it 2 weeks ago and reports it was also changed [address] scan shows bilateral kidneys with perinephric stranding, no hydronephrosis or stones. Cysts too small to characterize. Also note probable bone mets. Has had low grade fevers no higher than 38.0 C BP slightly low 90's/60's but stable. White count is normal. Hgb/Hct stable. Baseline creatinine 1.3- today is 1.1 Urine culture is pending. Currently on IV zosyn. Also received a dose of IV Rocephin. His last PSA in June 2016 was 5.26 Problem List Medical Problems: (1) Abdominal pain Status: Acute (2) Bilateral hydronephrosis Status: Acute (3) Bladder outlet obstruction Status: Acute (4) Enlarged prostate Status: Acute (5) Renal failure Status: Acute (6) Renal insufficiency Status: Acute Past History cancer - prostate, hypertension Past Surgical History: other (Orchiectomy) Family History Hypertension Kidney disease Kidney stones Social History Hx Tobacco Use In Past Year?: No Marital status: Occupation status: employed Allergies Coded Allergies: No Known Allergies (Unverified , 03/11/17) Medications Home Medications: Home Meds and Scripts Medications Dose Route/Sig Max Daily Dose Days Date Category Furosemide 20 Mg Tab 20 Mg PO DAILY 03/11/17 Reported Inpatient Medications: Current Inpatient Medications Medications (Trade) Dose Ordered Sig/Brea Route Start Time Stop Time Status Last Admin Dose Admin Ioversol (Optiray 320) 125 ml UD PRN IV 03/11/17 10:15 03/15/17 10:14 Heparin Sodium (Porcine) (Heparin Sq 5000 Unit/0.5ml) 5,000 unit Q8H SQ 03/11/17 16:00 04/10/17 15:59 03/13/17 01:09 5,000 UNIT Acetaminophen (Tylenol Tab) 650 mg Q4H PRN PO 03/11/17 12:45 04/10/17 12:44 03/12/17 15:43 650 MG Al Hydrox/Mg Hydrox/Simethicone (Maalox Max Susp) 15 ml Q4H PRN PO 03/11/17 12:45 04/10/17 12:44 Magnesium Hydroxide (Milk Of Magnesia Susp) 30 ml Q6H PRN PO 03/11/17 12:45 04/10/17 12:44 Polyethylene (Miralax Powder Packet) 17 gm DAILY PRN PO 03/11/17 12:45 04/10/17 12:44 Ondansetron HCl (Zofran Inj) 4 mg Q6H PRN IV 03/11/17 12:45 04/10/17 12:44 Morphine Sulfate (MoRPHine SULFATE INJ) 2 mg Q4H PRN IV 03/12/17 16:30 03/26/17 16:29 03/12/17 21:08 2 MG Morphine Sulfate (MoRPHine SULFATE INJ) 4 mg Q4H PRN IV 03/12/17 16:30 03/26/17 16:29 Sodium Chloride 1,000 ml @ 100 mls/hr Q10H IV 03/12/17 16:30 04/11/17 16:29 03/13/17 02:30 100 MLS/HR Oxycodone HCl (Roxicodone Immediate Rel Tab) 10 mg Q6 PRN PO 03/12/17 16:30 03/26/17 16:29 03/13/17 07:38 10 MG Piperacillin Sod/ Tazobactam Sod (Consult) 1 ea UD PRN N/A 03/12/17 17:00 04/11/17 16:59 Piperacillin Sod/ Tazobactam Sod 3.375 gm/Dextrose 115 ml @ 28.75 mls/ hr Q8H IV 03/12/17 22:00 03/22/17 21:59 03/13/17 06:11 28.75 MLS/HR Review of Systems Review of Systems Constitutional: + fever, + chills Eyes: No blurred vision Neurological: + dizzy Endocrine: No excessive thirst Gastrointestinal: + see HPI, + abdominal pain, + nausea Cardiovascular: No chest pain Respiratory: No shortness of breath Skin: No rash Musculoskeletal: + back pain Blood / Lymphatic: No bleed easily Ears / Nose / Throat: No hearing loss Psychologic / Mental: No nervous, No trouble remembering Male : + urinary retention (chronic), No frequent urination, No painful urination Physical Exam Vital Signs: Vital Signs Past 12 Hours Date Time Temp Pulse Resp B/P (MAP) Pulse Ox O2 Delivery O2 Flow Rate FiO2 03/13/17 07:17 37.3 76 18 99/61 (74) 95 Room Air 03/13/17 04:29 37.1 77 18 102/61 (75) 94 Room Air 03/13/17 00:05 Room Air Physical Exam: General Appearance: WD/WN, no apparent distress ENT: hearing grossly normal Neck: supple, no JVD Respiratory/Chest: lungs clear, normal breath sounds, no respiratory distress, no accessory muscle use Cardiovascular: regular rate, rhythm, no JVD Gastrointestinal: Abdomen: diffuse Extremities: no pedal edema, no calf tenderness Neurologic/Psychiatric: alert, normal mood/affect, oriented x 3 Skin: normal color Assessment & Plan Assessment & Plan Imaging: CT Suspected UTI with pyelonephritis Hx of prostate cancer CT scan shows perinephric stranding no hydro. Note bone mets- discussed results with pt. White count and creatinine are unremarkable. Temp is low grade. Continue IV antibiotics per primary service. Will await urine culture sensitivities- recommend to continue oral antibiotics upon discharge for 10-14 days. No immediate urologic intervention needed at this time. Will check PSA. 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 Last PSA was 5.26 Thank you for allowing us to participate in the care of this pt- we will continue to follow along with primary service.
[2017-03-13] MEDS: ACETAMINOPHEN 325 MG TAB PO PRN (15:30)
--- NOTE | 2017-03-13 19:38 | Progress Note ---
Subjective Date of Service: Mar 13, 2017. Subjective Patient is not feel much better today still having abdominal pains is having less sweating feels clammy he is tolerating diet his pain is mostly no focal in the left side Problem List Medical Problems: (1) Abdominal pain Status: Acute (2) Bilateral hydronephrosis Status: Acute (3) Bladder outlet obstruction Status: Acute (4) Enlarged prostate Status: Acute (5) Renal failure Status: Acute (6) Renal insufficiency Status: Acute Review of Systems Constitutional: + chills, + sweats, + weakness, No fever Respiratory: No cough, No shortness of breath, No dyspnea on exertion Cardiac: No chest pain, No orthopnea, No edema Abdomen: + pain, + diarrhea, No nausea, No vomiting, No constipation Musculoskeletal: + problem reported (pain in his back), No joint pain, No muscle pain Psychiatric: + depression symptoms, No anhedonism Objective Vital Signs Date Time Temp Pulse Resp B/P (MAP) Pulse Ox O2 Delivery O2 Flow Rate FiO2 03/13/17 18:42 36.7 75 17 104/61 (75) 95 Room Air 03/13/17 18:12 36.9 03/13/17 16:47 37.8 03/13/17 16:00 Room Air 03/13/17 15:21 38.4 87 17 98/53 (68) 93 Room Air 03/13/17 08:30 Room Air 03/13/17 07:17 37.3 76 18 99/61 (74) 95 Room Air 03/13/17 04:29 37.1 77 18 102/61 (75) 94 Room Air 03/13/17 00:05 Room Air Physical Exam General Appearance: WD/WN, + mild distress Eyes: PERRL, EOMI Respiratory/Chest: chest non-tender, lungs clear, normal breath sounds Cardiovascular: regular rate, rhythm, no murmur Abdomen: normal bowel sounds, soft, + tenderness (left lower quadrant guarding) Extremities: no pedal edema, no calf tenderness Neurologic/Psychiatric: alert, oriented x 3 Laboratory Results Last 24 Hours Test 03/13/17 09:10 Prostate Specific Antigen 2.300 ng/ml Assessment and Plan 72 y/o M Hx prostate CA which is untreated, chronic urinary outlet obstruction and an indwelling Kumari. Pt presents with progressive b/l, lower abdominal and flank pain, unconfirmed fevers A CT abdomen reveals b/l perinephric stranding concern for pyelonephritis additionally seen metastatic prostate CA. Possible b/l pyelonephritis - IV changed to Zosyn continues to be pending culture results. He has a functional chronic Kumari he was evaluated by urology. CT Scan imaging suggestive of b/l pyelonephritis there is cystic kidneys if pain persists we may reimage the left side to determine if hydronephrosis has worsened. Abdominal pain is increased requiring parenteral opiate therapy Mild loose bowel movements not quite yet diarrhea will follow for concern for C. difficile Previously seen Dr. Graff for renal failure although his kidney function is good at this time Prostate CA -seems to be metastatic at this time HTN -will follow as he's continuing IVF. full code heparin for dvt
[2017-03-14] VITALS (7 sets, daily range): BP systolic 98–123; BP diastolic 59–76; PULSE 77–105; TEMP 37–38.1; O2SAT 92–99
[2017-03-14] MEDS: HEPARIN SOD 5000 UNIT/0.5 ML CARP SQ SCH ×3 (01:14→15:49)
[2017-03-14] MEDS: PIPERACILL/TAZOBAC IV 3.375 GM in DEXTROSE 5% 100ML IV SCH ×3 (06:17→21:43)
[2017-03-14] MEDS: SODIUM CHLORIDE 0.9% 1000ML 1,000 ML IV SCH ×2 (07:48→18:31)
[2017-03-14 08:05] LABS: HEMATOCRIT 31.4 % (42-52); MEAN CELL VOLUME 86.7 fL (80-100); MEAN CORPUSCULAR HEMOGLOBIN 29.6 pg (25-34); MEAN CORPUSCULAR HGB CONC 34.1 g/dl (32-36); MEAN PLATELET VOLUME 11.4 fL (7.4-10.4); PLATELET COUNT 158 K/uL (130-400); RED BLOOD COUNT 3.62 M/uL (4.7-6.1); WHITE BLOOD COUNT 5.81 K/uL (4.8-10.8)
[2017-03-14 08:33] LABS: CREATININE 1.1 mg/dl (0.60-1.40)
--- NOTE | 2017-03-14 09:08 | Progress Note ---
Subjective Date of Service: Mar 14, 2017. Subjective Pt evaluation today including: conversation w/ patient, physical exam, chart review, lab review Voiding: pickens catheter in place Pt continues to feel poorly. General malaise. Low grade fever overnight. Chills and diaphoretic this am. Report he has abdominal pain and had nausea and vomiting last evening. White count remains normal. Creatinine is fine. Preliminary urine culture shows no growth. PSA was also surprisingly low at 2.3 Denies flank pain- his back pain is located more lumbosacral. Problem List Medical Problems: (1) Abdominal pain Status: Acute (2) Bilateral hydronephrosis Status: Acute (3) Bladder outlet obstruction Status: Acute (4) Enlarged prostate Status: Acute (5) Renal failure Status: Acute (6) Renal insufficiency Status: Acute Review of Systems Constitutional: + see HPI, + fever, + chills, + sweats, + weakness ENT: No hearing loss Respiratory: No cough, No wheezing, No shortness of breath Cardiac: No chest pain Abdomen: + pain, + nausea, + vomiting Male : + see HPI Psychiatric: No depression symptoms Heme: No abnormal bleeding/bruising Endo: + fatigue Objective Vital Signs Date Time Temp Pulse Resp B/P (MAP) Pulse Ox O2 Delivery O2 Flow Rate FiO2 03/14/17 07:25 37.4 77 18 123/67 (85) 96 Room Air 03/14/17 04:18 37.1 77 18 111/76 (88) 97 Room Air 03/14/17 00:05 Room Air 03/13/17 23:36 37.6 83 18 109/71 (84) 98 Room Air 03/13/17 21:10 Room Air 03/13/17 18:42 36.7 75 17 104/61 (75) 95 Room Air 03/13/17 18:12 36.9 03/13/17 16:47 37.8 03/13/17 16:00 Room Air 03/13/17 15:21 38.4 87 17 98/53 (68) 93 Room Air Physical Exam General Appearance: WD/WN, no apparent distress ENT: hearing grossly normal Respiratory/Chest: no respiratory distress, no accessory muscle use Abdomen: + guarding (No CVA tenderness bilaterally.) Extremities: no pedal edema, no calf tenderness Neurologic/Psychiatric: alert, normal mood/affect, oriented x 3 Skin: normal color, + diaphoresis Laboratory Results Last 24 Hours Test 03/13/17 09:10 03/14/17 07:37 Prostate Specific Antigen 2.300 ng/ml White Blood Count 5.81 K/uL Red Blood Count 3.62 M/uL Hemoglobin 10.7 g/dL Hematocrit 31.4 % Mean Corpuscular Volume 86.7 fL Mean Corpuscular Hemoglobin 29.6 pg Mean Corpuscular Hemoglobin Concent 34.1 g/dl RDW Standard Deviation 45.3 fL RDW Coefficient of Variation 14.1 % Platelet Count 158 K/uL Mean Platelet Volume 11.4 fL Creatinine 1.10 mg/dl Est Creatinine Clear Calc Drug Dose 64.9 ml/min Estimated GFR () 76.2 Estimated GFR (Non- 65.8 Assessment and Plan Initially suspected UTI w/ possible pyelo However, surprisingly his prelim urine culture is showing no growth. White count and creatinine are normal. No flank/CVA pain or tenderness. No longer suspicious for urinary tract pathogen causing his issues. Continue monthly self cath changes. Hx of prostate cancer PSA is also surprising- 2.3 Suspected this would be higher given prostatic mets. No immediate urologic intervention needed at this time. Can follow up as outpt. No further management necessary at this time. Please recall prn.
--- NOTE | 2017-03-14 10:30 | Progress Note ---
Progress Note Date of Service Mar 14, 2017. Progress Note ID Consult Dictated #[id number] A/P: 1. Fever -No clear evidence to suggest pyelo by UA, culture negative as well -Will check blood cultures, can continue zosyn for now -Suggest repeat LFT's r/o gb as source, AST min elevated on admission -Also consider non infectious source with negative culture and nml wbc, would suggest dopplers r/o dvt as source with metastatic cancer -will follow, thank you
[2017-03-14] MEDS: ACETAMINOPHEN 325 MG TAB PO PRN ×2 (10:41→16:45)
--- NOTE | 2017-03-14 11:47 | INFECT. DISEASE CONSULTATION ---
DATE OF CONSULTATION: 03/14/2017 REQUESTING PHYSICIAN: Dr. Ivory. HISTORY OF PRESENT ILLNESS: This is a 72-year-old gentleman who was admitted with bilateral abdominal and flank pain as well as an episode of vomiting prior to admission and subjective fevers and chills. He does have a complicated medical history where he underwent testicle removal in March. He also has a history of metastatic prostate cancer, for which he has declined treatment. He does have a chronic Kumari catheter in place, which he changes on his own on a monthly basis. He does follow regularly with urology. He was admitted to the hospital and found to have T-max of 38.2 on the 5th, T-max of 37.6 on the 6th, and T-max of 38.4 overnight. Infectious diseases was consulted for fever. He was placed empirically on Zosyn for suspected urinary tract infection and a CAT scan of the abdomen and pelvis which showed perinephric stranding. Presumptive diagnosis of pyelonephritis was made. However, he only had 5-10 WBCs on his initial urinalysis and no bacteria was seen. His urine culture has been negative. No blood cultures have been obtained. C. diff is negative as well. His white blood cell count has been within normal limits. His CAT scan also showed bony metastasis, likely from untreated prostate cancer. On my examination today, his family is present. He states overall he is feeling well. He persists with nausea and does complain mostly right upper quadrant pain with radiation diffusely. He has no suprapubic pain. He denies any problems with his Kumari catheter or any change in the nature of his urine flow. His back pain has resolved. He does not feel feverish now but when he has a fever, he describes feeling warm and then sweaty. He denies any chills or rigors. He has no cough, chest pain or shortness of breath. He has no sick contacts. He appears to be tolerating Zosyn well. He has not had any vomiting since admission but is persistently nauseated. All remaining review of systems are reviewed and unremarkable. PAST MEDICAL HISTORY: Significant for prostate cancer, now with metastasis, for which he is declining treatment and urinary outlet obstruction. FAMILY HISTORY: Noncontributory. SOCIAL HISTORY: Negative for tobacco use, alcohol use or drug use. He lives with family. ALLERGIES: He has no known drug allergies. CURRENT MEDICATIONS: Include Zosyn, morphine, Roxicodone, subQ heparin, Tylenol, Maalox, milk of magnesia, MiraLax, and Zofran. PHYSICAL EXAMINATION: VITAL SIGNS: Current temperature is 37.4, his T-max for the last 24 hours is 38.4 at 3:30 yesterday afternoon. Pulse 77, respiratory rate 18, blood pressure 123/67, and oxygen saturation is 96-98% on room air. GENERAL: He is awake, alert and oriented x3. He is in no acute distress. HEENT: Mucous membranes are moist. Extraocular muscles are intact. HEART: Regular. LUNGS: Clear bilaterally. ABDOMEN: Soft, nontender, nondistended. EXTREMITIES: There is no lower extremity edema. GENITOURINARY: Kumari catheter is in place. LABORATORY STUDIES: CBC today reveals a white blood cell count of 5.8, hemoglobin 10.70, platelets of 158. Most recent chemistry panel on the 6th: Sodium 135, potassium 3.9, chloride 105, bicarb 24, BUN 13, creatinine 1.1, glucose 137. AST was mildly elevated on admission at 57, ALT is 61, PSA is 2.3. Urine analysis on admission had 5-10 WBCs with no bacteria. Stool for C. diff was negative. Urine culture is negative. Imaging is as reviewed previously. ASSESSMENT AND PLAN: Fever, infectious versus non-infectious. Certainly with metastatic prostate cancer, this certainly could be a non-infectious source for fever. I would recommend Doppler exams to rule out deep venous thrombosis as a source. It does not appear that urinary tract infection is contributing as he has had negative urine cultures and a negative urine analysis. However, chronic Kumari catheter would put him at risk for this. Blood cultures have not been obtained and will be checked. I would also suggest repeating LFTs. It appears now most of his pain is confined to the right upper quadrant and his AST was mildly elevated on admission. He will remain on Zosyn pending additional workup. Thank you for this consultation.
--- NOTE | 2017-03-14 19:15 | Progress Note ---
Subjective Date of Service: Mar 14, 2017. Subjective Patient is a cyclic fevers was seen by infectious disease recommending gallbladder evaluation Dopplers of his leg continuing Zosyn and blood cultures pending and culture did not show clear-cut infectious source although CAT scan of his abdomen showed perinephric stranding patient is sweaty uncomfortable left lower quadrant and flank pain has improved urine cultures are negative likely because they're collected after in about's were instituted Problem List Medical Problems: (1) Abdominal pain Status: Acute (2) Bilateral hydronephrosis Status: Acute (3) Bladder outlet obstruction Status: Acute (4) Enlarged prostate Status: Acute (5) Renal failure Status: Acute (6) Renal insufficiency Status: Acute Review of Systems Constitutional: + fever, + chills, + weakness Respiratory: No cough, No sputum, No shortness of breath, No dyspnea on exertion Cardiac: No chest pain, No orthopnea, No edema, No claudication Abdomen: + pain, No nausea, No vomiting, No diarrhea, No constipation Musculoskeletal: + joint pain, + muscle pain Neurologic: No memory loss, No paralysis Psychiatric: No depression symptoms, No anhedonism Objective Vital Signs Date Time Temp Pulse Resp B/P (MAP) Pulse Ox O2 Delivery O2 Flow Rate FiO2 03/14/17 16:00 Room Air 03/14/17 15:29 37.1 77 20 115/75 (88) 99 Nasal Cannula 2.0 03/14/17 12:22 37.0 84 20 105/66 (79) 94 Nasal Cannula 2.0 03/14/17 10:40 38.1 03/14/17 08:15 Room Air 03/14/17 07:25 37.4 77 18 123/67 (85) 96 Room Air 03/14/17 04:18 37.1 77 18 111/76 (88) 97 Room Air 03/14/17 00:05 Room Air 03/13/17 23:36 37.6 83 18 109/71 (84) 98 Room Air 03/13/17 21:10 Room Air Physical Exam General Appearance: WD/WN, + moderate distress Eyes: PERRL, EOMI Respiratory/Chest: chest non-tender, lungs clear, normal breath sounds Cardiovascular: regular rate, rhythm, no murmur Abdomen: normal bowel sounds, soft, + guarding, + tenderness Extremities: no pedal edema, no calf tenderness Neurologic/Psychiatric: alert, oriented x 3 Laboratory Results Last 24 Hours Test 03/14/17 07:37 White Blood Count 5.81 K/uL Red Blood Count 3.62 M/uL Hemoglobin 10.7 g/dL Hematocrit 31.4 % Mean Corpuscular Volume 86.7 fL Mean Corpuscular Hemoglobin 29.6 pg Mean Corpuscular Hemoglobin Concent 34.1 g/dl RDW Standard Deviation 45.3 fL RDW Coefficient of Variation 14.1 % Platelet Count 158 K/uL Mean Platelet Volume 11.4 fL Creatinine 1.10 mg/dl Est Creatinine Clear Calc Drug Dose 64.9 ml/min Estimated GFR () 76.2 Estimated GFR (Non- 65.8 Assessment and Plan 72 y/o M Hx prostate CA which is untreated, chronic urinary outlet obstruction and an indwelling Kumari. Pt presents with progressive b/l, lower abdominal and flank pain, unconfirmed fevers A CT abdomen reveals b/l perinephric stranding concern for pyelonephritis additionally seen metastatic prostate CA. Continued fever- IV Zosyn continues to be pending blood culture results. He has a functional chronic Kumari he was evaluated by urology. CT Scan imaging suggestive of b/l pyelonephritis there is cystic kidneys will check renal ultrasound gallbladder ultrasound and Dopplers to look for alternative sources for fever infectious disease is following Abdominal pain is improved with parenteral opiate therapy Mild loose bowel movements no significant diarrhea will follow for concern for C. difficile and enteric seronegative Previously seen Dr. Graff for renal failure although his kidney function is good at this time Prostate CA -seems to be metastatic at this time no further visits from urology HTN -will follow as he's continuing IVF. full code heparin for dvt
[2017-03-14] MEDS ORDERED: OPTIRAY 320 IV PRN (19:45)
--- NOTE | 2017-03-14 22:18 | DIAGNOSTIC IMAGING REPORT ---
ABD/PELVIS IV AND ORAL CONT CT DOSE: 862.27 mGy.cm HISTORY: Fever persistent fever eval pyelo and gall bladder TECHNIQUE: Multiaxial CT images of the abdomen and pelvis were performed following the use of intravenous and oral contrast. A dose lowering technique was utilized adhering to the principles of ALARA. COMPARISON STUDY: 03/11/2017 FINDINGS: Interval development of small bibasilar pleural effusions. Minimal left basilar infiltrative process. Liver continues to show fatty infiltration. Gallstones remain present within the gallbladder lumen. There is no gallbladder distention. Perinephric infiltrative changes are stable to perhaps slightly improved. Bilateral renal cysts are similar. Bowel pattern is considered nonobstructive. There is no evidence for abscess collection or obstruction. Bladder wall remains somewhat thick. There is no free fluid within the pelvic cul-de-sac. 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 IMPRESSION: 1. Interval development of small bilateral pleural effusions with equivocal left basilar infiltrative change. 2. Gallstones in a nondistended gallbladder. Biliary ductal system remains unremarkable 3. Fatty infiltration of liver stable. 4. Mild perinephric infiltrative change bilaterally stable to slightly improved. 5. Bowel pattern remains nonobstructive. 6. Persistent bladder wall thickening. The above report was generated using voice recognition software. It may contain grammatical, syntax or spelling errors. Electronically signed by: Darnell Salazar M.D. 03/14/2017 10:17 PM Dictated Date/Time: 03/14/2017 10:14 PM
--- NOTE | 2017-03-14 22:43 | DIAGNOSTIC IMAGING REPORT ---
VENOUS DOPPLER LW EXT BILAT HISTORY: Pain. Edema. h/o cancer eval for dv COMPARISON STUDY: None. FINDINGS: There is normal compressibility, flow, and augmentation within the bilateral lower extremity deep venous systems. IMPRESSION: No DVT within the right or left lower extremity. The above report was generated using voice recognition software. It may contain grammatical, syntax or spelling errors. Electronically signed by: Darnell Salazar M.D. 03/14/2017 10:41 PM Dictated Date/Time: 03/14/2017 10:41 PM
[2017-03-15] VITALS (7 sets, daily range): BP systolic 94–107; BP diastolic 52–85; PULSE 72–93; TEMP 37–38.4; O2SAT 94–98
[2017-03-15] MEDS: ACETAMINOPHEN 325 MG TAB PO PRN ×3 (00:02→19:31)
[2017-03-15] MEDS: HEPARIN SOD 5000 UNIT/0.5 ML CARP SQ SCH ×3 (00:49→17:18)
[2017-03-15] MEDS: SODIUM CHLORIDE 0.9% 1000ML 1,000 ML IV SCH (05:02)
[2017-03-15] MEDS: PIPERACILL/TAZOBAC IV 3.375 GM in DEXTROSE 5% 100ML IV SCH ×3 (05:03→21:54)
--- NOTE | 2017-03-15 06:16 | DIAGNOSTIC IMAGING REPORT ---
CHEST ONE VIEW PORTABLE CLINICAL HISTORY: sob dyspnea COMPARISON STUDY: 04/05/2016 FINDINGS: Mild cardiomegaly. Findings of early congestive failure. Trace pleural fluid left lung base. IMPRESSION: Mild congestive failure. Potential small superimposed parenchymal infiltrate left base. The above report was generated using voice recognition software. It may contain grammatical, syntax or spelling errors. Electronically signed by: Darnell Salazar M.D. 03/15/2017 6:15 AM Dictated Date/Time: 03/15/2017 6:14 AM
[2017-03-15] MEDS ORDERED: FUROSEMIDE INJ 20 MG in SYRINGE 0 ML IV ONE (07:45)
[2017-03-15 08:21] LABS: CREATININE 0.97 mg/dl (0.60-1.40)
--- NOTE | 2017-03-15 15:13 | Progress Note ---
Subjective Date of Service: Mar 15, 2017. Subjective This patient is slightly improved having low-grade temperatures, he still has abdominal pain but it is lessened his pain is now more epigastric. It is rated 3/10 worse with movement unaffected by eating Problem List Medical Problems: (1) Abdominal pain Status: Acute (2) Bilateral hydronephrosis Status: Acute (3) Bladder outlet obstruction Status: Acute (4) Enlarged prostate Status: Acute (5) Renal failure Status: Acute (6) Renal insufficiency Status: Acute Review of Systems Constitutional: + fever, + chills Cardiac: No chest pain, No orthopnea Abdomen: + pain, No nausea, No vomiting Objective Vital Signs Date Time Temp Pulse Resp B/P (MAP) Pulse Ox O2 Delivery O2 Flow Rate FiO2 03/15/17 14:57 37.4 83 18 100/65 (77) 97 03/15/17 13:02 37.1 03/15/17 11:16 38.3 89 20 99/52 (68) 94 Nasal Cannula 2.0 03/15/17 08:00 Nasal Cannula 2.0 03/15/17 07:23 37.4 81 20 107/85 (92) 95 Nasal Cannula 3.0 03/15/17 04:05 37.1 74 20 94/60 (71) 98 Nasal Cannula 2.0 03/15/17 00:05 Room Air 03/14/17 23:45 37.9 105 18 114/70 (85) 98 03/14/17 20:05 Room Air 03/14/17 19:25 37.0 79 16 98/59 (72) 92 Nasal Cannula 2.0 03/14/17 16:00 Nasal Cannula 2.0 03/14/17 15:29 37.1 77 20 115/75 (88) 99 Nasal Cannula 2.0 Laboratory Results Last 24 Hours Test 03/15/17 07:23 Creatinine 0.97 mg/dl Est Creatinine Clear Calc Drug Dose 74.0 ml/min Estimated GFR () 88.8 Estimated GFR (Non- 76.6 Assessment and Plan 72 y/o M Hx prostate CA which is untreated, chronic urinary outlet obstruction and an indwelling Kumari. Pt presents with progressive b/l, lower abdominal and flank pain, unconfirmed fevers A CT abdomen reveals b/l perinephric stranding concern for pyelonephritis additionally seen metastatic prostate CA. Continued fever- IV Zosyn adding vancomycin on 03/[address] shows persistent perinephric stranding, chronic Kumari Abdominal pain is improved with parenteral opiate therapy, does not seem consistent with gall bladder disease and no GB changes seen on CT Mild loose bowel movements no significant diarrhea will follow for concern for C. difficile and enteric seronegative Previously seen Dr. Graff for renal failure although his kidney function is good at this time Prostate CA -seems to be metastatic at this time no further visits from urology full code heparin for dvt
[2017-03-16] MEDS: HEPARIN SOD 5000 UNIT/0.5 ML CARP SQ SCH ×3 (01:09→16:15)
[2017-03-16 04:18] VITALS: BP 104/67; PULSE 88; TEMP 37; O2SAT 96
[2017-03-16] MEDS: PIPERACILL/TAZOBAC IV 3.375 GM in DEXTROSE 5% 100ML IV SCH ×2 (05:51→14:22)
[2017-03-16] MEDS ORDERED: NURSING VERBAL MED ORDER ONE ×2 (06:00→06:15)
[2017-03-16] MEDS ORDERED: FUROSEMIDE INJ 20 MG in SYRINGE 0 ML IV STA (06:03)
[2017-03-16 06:05] LABS: BUN/CREATININE RATIO 8.3 (10-20); CALCIUM 7.7 mg/dl (8.5-10.1); CREATININE 1.1 mg/dl (0.60-1.40); POTASSIUM 3.6 mmol/L (3.5-5.1)
[2017-03-16 06:08] LABS: ALB/GLOB RATIO 0.5 (0.9-2)
[2017-03-16] MEDS ORDERED: ALBUT/IPRATROP 3MG/0.5MG NEB 3 ML VIAL INH PRN (06:45)
[2017-03-16 07:23] VITALS: BP 99/62; PULSE 87; TEMP 37.4; O2SAT 96
[2017-03-16 07:30] VITALS: PULSE 88; O2SAT 96
[2017-03-16] MEDS ORDERED: VANCOMYCIN CONSULT ACTIVE SCH (07:57)
[2017-03-16] MEDS ORDERED: VANCOMYCIN INJ 2,250 MG in SODIUM CHLORIDE 0.9% 500ML 500 ML IV ONE (08:15)
--- NOTE | 2017-03-16 10:03 | Pharmacy Progress Note ---
Pharmacy Antibiotic Consult Date of Service: Mar 16, 2017. Pharmacy Dosing Scope Pharmacy is consulted to initiate vancomycin IV dosing therapy, order appropriate labs and adjust drug dose/frequency. Subjective The patient is a 72 year old male admitted on Mar 11, 2017 at 12:43. Objective Height (Feet): 5 Height (Inches): 7.00 Weight (Kilograms): 96.900 Lab Results (24hrs): Test 03/16/17 05:29 03/16/17 08:10 Sodium Level 137 mmol/L (136-145) Potassium Level 3.6 mmol/L (3.5-5.1) Chloride Level 108 mmol/L (98-107) Carbon Dioxide Level 22 mmol/L (21-32) Anion Gap 7.0 mmol/L (3-11) Blood Urea Nitrogen 9 mg/dl (7-18) Creatinine 1.10 mg/dl (0.60-1.40) Est Creatinine Clear Calc Drug Dose 65.3 ml/min Estimated GFR () 76.2 Estimated GFR (Non- 65.8 BUN/Creatinine Ratio 8.3 (10-20) Random Glucose 113 mg/dl (70-99) Calcium Level 7.7 mg/dl (8.5-10.1) Total Bilirubin 0.4 mg/dl (0.2-1) Aspartate Amino Transf (AST/SGOT) 42 U/L (15-37) Alanine Aminotransferase (ALT/SGPT) 60 U/L (12-78) Alkaline Phosphatase 74 U/L (45-117) Total Protein 5.8 gm/dl (6.4-8.2) Albumin 1.9 gm/dl (3.4-5.0) Globulin 3.9 gm/dl (2.5-4.0) Albumin/Globulin Ratio 0.5 (0.9-2) Erythrocyte Sedimentation Rate 50 mm/hr (0-14) Micro Results: Item Value Date Time Blood Culture - Preliminary Resulted 03/14/17 1058 Blood NO GROWTH TO DATE. Blood Culture - Preliminary Resulted 03/14/17 1043 Blood NO GROWTH TO DATE. Urine Culture - Final Complete 03/12/17 2210 Urine,Catheterized NO GROWTH - LESS THAN 1,000 COLONIES/ML Shiga Toxin Test - Final Complete 03/12/17 0715 Stool Assessment & Plan Patient admitted with abdominal pain, fever. Initially started on zosyn on 03/12 for complicate UTI; however continues to have persistent fevers therefore vancomycin added for broader coverage. ID is following the patient. Vancomycin: * Vancomycin 2250 mg (~24 mg/kg) x 1 given * Will start MD of vancomycin 1250 mg (~13 mg/kg) iv q 18 hrs to achieve an estimated trough ~15-20 mcg/ml (unsure source of infection) * Will plan to obtain a trough prior to the 03/18 1400 dose to ensure therapeutic (note this will be before steady state) * Estimated kinetics: t1/2~14 hrs, ke~0.05 hr-1, CrCl 65 ml/min Zosyn: * 3.375 gm iv q 8 hrs (appropriate for CrCl >20 ml/min); no change Pharmacy will continue to follow and will adjust dose/frequency as necessary. Thank you
[2017-03-16] MEDS ORDERED: OPTIRAY 320 IV PRN (12:30)
--- NOTE | 2017-03-16 13:25 | DIAGNOSTIC IMAGING REPORT ---
(CHEST FOR PE) ANGIO WITH CT DOSE: 490.63 mGy.cm HISTORY: Chest pain dyspnea TECHNIQUE: Multiaxial CT images of the chest were performed following the intravenous administration of contrast to evaluate the pulmonary arteries. Maximal intensity projection images were also obtained. A dose lowering technique was utilized adhering to the principles of ALARA. COMPARISON STUDY: None. FINDINGS: Mild atherosclerotic change thoracic aorta. No evidence for aneurysm or dissection. Pulmonary vasculature enhances appropriately. There are no significant filling defects. Left lower lobe infiltrate. Small left and to lesser extent right pleural effusion. Mild cardiomegaly. Several hilar mediastinal and superior mediastinal nodes measuring up to 2 cm. These be closely watched on subsequent examinations. Moderate degenerative change of the thoracic spine. Mild sclerosis of the mid thoracic vertebral body. Sclerotic changes of several ribs again of uncertain significance. IMPRESSION: 1. No evidence for pulmonary embolus. 2. Acute infiltrate left lower lobe. 3. Small bilateral pleural effusions. 4. Sclerotic changes several lower ribs as well as mid thoracic vertebral body. The patient's current symptoms have resolved, MRI or bone scan would be suggested as follow-up. 5. Several mediastinal and hilar nodes possibly reactive although given the additional findings as described close CT follow-up is recommended to exclude a neoplastic etiology. The above report was generated using voice recognition software. It may contain grammatical, syntax or spelling errors. Electronically signed by: Darnell Salazar M.D. 03/16/2017 1:24 PM Dictated Date/Time: 03/16/2017 1:18 PM
[2017-03-16 15:54] VITALS: BP 101/61; PULSE 83; TEMP 37.1; O2SAT 93
--- NOTE | 2017-03-16 16:15 | Progress Note ---
Subjective Date of Service: Mar 16, 2017. Subjective this pt is tearful as continues to feel sick and tired and not improved, Did do CTA today without PE but shows LLL pneumonia, must consider Gram negative but also have not covered atypical yet, added Pascual 03/16 Problem List Medical Problems: (1) Abdominal pain Status: Acute (2) Bilateral hydronephrosis Status: Acute (3) Bladder outlet obstruction Status: Acute (4) Enlarged prostate Status: Acute (5) Renal failure Status: Acute (6) Renal insufficiency Status: Acute Review of Systems Constitutional: + fever, + chills, + weakness Respiratory: + wheezing, + shortness of breath, + dyspnea on exertion, No cough , No sputum Cardiac: No chest pain, No orthopnea Abdomen: No pain, No nausea, No vomiting, No diarrhea Male : + problem reported (chronic pickens), No dysuria, No urinary frequency Objective Vital Signs Date Time Temp Pulse Resp B/P (MAP) Pulse Ox O2 Delivery O2 Flow Rate FiO2 03/16/17 15:54 37.1 83 20 101/61 (74) 93 Room Air 03/16/17 08:00 Nasal Cannula 2.0 03/16/17 07:30 88 96 Nasal Cannula 2.0 03/16/17 07:23 37.4 87 20 99/62 (74) 96 2.0 03/16/17 04:18 37.0 88 16 104/67 (79) 96 Nasal Cannula 2.0 03/16/17 00:05 Nasal Cannula 2.0 03/15/17 23:17 37.0 72 18 99/63 (75) 98 Nasal Cannula 2.0 03/15/17 20:05 Nasal Cannula 2.0 03/15/17 19:11 38.4 93 20 99/66 (77) 96 Nasal Cannula 2.0 Physical Exam General Appearance: WD/WN, + moderate distress Neck: supple, no JVD Respiratory/Chest: chest non-tender, + decreased breath sounds, + rhonchi ( bases L>R) Cardiovascular: regular rate, rhythm, no murmur Abdomen: normal bowel sounds, non tender, soft Extremities: normal range of motion, non-tender, normal inspection, no pedal edema Neurologic/Psychiatric: alert, oriented x 3 Laboratory Results Last 24 Hours Test 03/16/17 05:29 03/16/17 08:10 Sodium Level 137 mmol/L Potassium Level 3.6 mmol/L Chloride Level 108 mmol/L Carbon Dioxide Level 22 mmol/L Anion Gap 7.0 mmol/L Blood Urea Nitrogen 9 mg/dl Creatinine 1.10 mg/dl Est Creatinine Clear Calc Drug Dose 65.3 ml/min Estimated GFR () 76.2 Estimated GFR (Non- 65.8 BUN/Creatinine Ratio 8.3 Random Glucose 113 mg/dl Calcium Level 7.7 mg/dl Total Bilirubin 0.4 mg/dl Aspartate Amino Transf (AST/SGOT) 42 U/L Alanine Aminotransferase (ALT/SGPT) 60 U/L Alkaline Phosphatase 74 U/L Total Protein 5.8 gm/dl Albumin 1.9 gm/dl Globulin 3.9 gm/dl Albumin/Globulin Ratio 0.5 Erythrocyte Sedimentation Rate 50 mm/hr Lyme Disease IgG Antibody NEG Assessment and Plan 72 y/o M Hx prostate CA which is untreated, chronic urinary outlet obstruction and an indwelling Pickens. Pt presents with progressive b/l, lower abdominal and flank pain, unconfirmed fevers A CT abdomen reveals b/l perinephric stranding initially concern for pyelonephritis additionally seen metastatic prostate CA. did not respond to antibiotics initially rochephin, changed to zosyn, still fevers, CTA on 03/16 shows LLL Pneumonia Continued fever- IV Zosyn adding vancomycin on 03/[address] abd shows persistent perinephric stranding, CTA 03/16 shows LLL pneumonia, will change to Cefepime and levaquin as still with fevers on zosyn ,ID is following Abdominal pain is improved with parenteral opiate therapy, continues to not seem consistent with gall bladder disease and no GB changes seen on CT, plus LFT 's ok Mild loose bowel movements no significant diarrhea will follow for concern for C. difficile and enteric seronegative Previously seen Dr. Graff for renal failure although his kidney function is good at this time Prostate CA -seems to be metastatic at this time no further visits from urology full code heparin for dvt
[2017-03-16] MEDS: CEFEPIME IV 2,000 MG in DEXTROSE 5% 100ML 100 ML IV SCH (17:31)
[2017-03-16] MEDS: LEVOFLOXACIN / D5W 750 MG in PREMIXED IN D5W 150 ML IV SCH (17:31)
[2017-03-16 19:37] VITALS: BP 100/68; PULSE 89; TEMP 37.1; O2SAT 96
[2017-03-16 23:36] VITALS: BP 100/59; PULSE 82; TEMP 37.4; O2SAT 93
[2017-03-17] MEDS: HEPARIN SOD 5000 UNIT/0.5 ML CARP SQ SCH ×4 (00:25→23:26)
[2017-03-17] MEDS: VANCOMYCIN INJ 1,250 MG in SODIUM CHLORIDE 0.9% 250ML 250 ML IV SCH ×2 (01:55→19:55)
[2017-03-17] MEDS: ACETAMINOPHEN 325 MG TAB PO PRN (02:14)
[2017-03-17 04:32] VITALS: BP 104/64; PULSE 68; TEMP 37.3; O2SAT 94
[2017-03-17] MEDS: CEFEPIME IV 2,000 MG in DEXTROSE 5% 100ML 100 ML IV SCH ×2 (06:05→17:36)
[2017-03-17 07:07] LABS: HEMATOCRIT 31.1 % (42-52); MEAN CORPUSCULAR HEMOGLOBIN 28.7 pg (25-34); MEAN CORPUSCULAR HGB CONC 33.8 g/dl (32-36); MEAN PLATELET VOLUME 10.7 fL (7.4-10.4); PLATELET COUNT 265 K/uL (130-400); RED BLOOD COUNT 3.66 M/uL (4.7-6.1); WHITE BLOOD COUNT 4.84 K/uL (4.8-10.8)
[2017-03-17 07:23] LABS: BUN/CREATININE RATIO 12.5 (10-20); CALCIUM 7.9 mg/dl (8.5-10.1); CREATININE 0.91 mg/dl (0.60-1.40); POTASSIUM 3.4 mmol/L (3.5-5.1)
[2017-03-17 07:26] LABS: ALB/GLOB RATIO 0.5 (0.9-2)
[2017-03-17 07:51] VITALS: BP 128/75; PULSE 77; TEMP 36.5; O2SAT 98
--- NOTE | 2017-03-17 10:52 | Progress Note ---
Subjective Date of Service: Mar 17, 2017. Subjective Pt evaluation today including: conversation w/ patient, conversation w/ family , physical exam, chart review, lab review pt seen in followup, feeling better today. no fevers since 03/15. abx broadened, now on vanco, levaquin and cefepime. eating better, no n/v/d. no abd pain, back pain resolving. repeat ct over weekend continued to show perinephric stranding but improved. blood cultures remain negative. urine culture negative. wbc 4.8. Also underwent b/l dopplers and cta which were all negative for clot. c diff and lyme negative. tolerating abx. overall feeling better. all remaining ros reviewed and are negative. Problem List Medical Problems: (1) Abdominal pain Status: Acute (2) Bilateral hydronephrosis Status: Acute (3) Bladder outlet obstruction Status: Acute (4) Enlarged prostate Status: Acute (5) Renal failure Status: Acute (6) Renal insufficiency Status: Acute Objective Vital Signs Date Time Temp Pulse Resp B/P (MAP) Pulse Ox O2 Delivery O2 Flow Rate FiO2 03/17/17 08:00 Nasal Cannula 2.0 03/17/17 07:51 36.5 77 20 128/75 (92) 98 2.0 03/17/17 04:32 37.3 68 18 104/64 (77) 94 Nasal Cannula 2.0 03/17/17 00:05 Nasal Cannula 2.0 03/16/17 23:36 37.4 82 16 100/59 (73) 93 Room Air 03/16/17 20:05 Nasal Cannula 2.0 03/16/17 19:37 37.1 89 20 100/68 (79) 96 Room Air 03/16/17 16:00 Nasal Cannula 2.0 03/16/17 15:54 37.1 83 20 101/61 (74) 93 Room Air Physical Exam General Appearance: WD/WN, no apparent distress Eyes: normal inspection, EOMI Neck: supple Respiratory/Chest: lungs clear, normal breath sounds, no respiratory distress Cardiovascular: regular rate, rhythm, no edema Abdomen: non tender, soft Extremities: non-tender, normal inspection, no pedal edema Neurologic/Psychiatric: alert, oriented x 3 Skin: normal color, warm/dry, no rash Laboratory Results Item Value Date Time Blood Culture - Preliminary Resulted 03/14/17 1058 Blood NO GROWTH TO DATE. Blood Culture - Preliminary Resulted 03/14/17 1043 Blood NO GROWTH TO DATE. Last 24 Hours Test 03/17/17 06:18 White Blood Count 4.84 K/uL Red Blood Count 3.66 M/uL Hemoglobin 10.5 g/dL Hematocrit 31.1 % Mean Corpuscular Volume 85.0 fL Mean Corpuscular Hemoglobin 28.7 pg Mean Corpuscular Hemoglobin Concent 33.8 g/dl RDW Standard Deviation 44.8 fL RDW Coefficient of Variation 14.3 % Platelet Count 265 K/uL Mean Platelet Volume 10.7 fL Sodium Level 139 mmol/L Potassium Level 3.4 mmol/L Chloride Level 108 mmol/L Carbon Dioxide Level 24 mmol/L Anion Gap 7.0 mmol/L Blood Urea Nitrogen 11 mg/dl Creatinine 0.91 mg/dl Est Creatinine Clear Calc Drug Dose 77.5 ml/min Estimated GFR () 95.9 Estimated GFR (Non- 82.7 BUN/Creatinine Ratio 12.5 Random Glucose 125 mg/dl Calcium Level 7.9 mg/dl Total Bilirubin 0.3 mg/dl Aspartate Amino Transf (AST/SGOT) 46 U/L Alanine Aminotransferase (ALT/SGPT) 60 U/L Alkaline Phosphatase 80 U/L Total Protein 6.0 gm/dl Albumin 1.9 gm/dl Globulin 4.1 gm/dl Albumin/Globulin Ratio 0.5 Assessment and Plan (1) Pyelonephritis Assessment & Plan: continue current abx, no pathogen identified but improving radiographic findings and now afebrile. would give 14 days total, if continues to improve, would narrow to complete course of po levaquin. blood culture remain negative.
[2017-03-17 11:27] VITALS: BP 105/66; PULSE 82; TEMP 36.9; O2SAT 98
--- NOTE | 2017-03-17 12:51 | ECHOCARDIOGRAM REPORT ---
*NOTICE TO RECEIVING CONSTITUTION PARTY AGENCY This information is strictly Confidential and protected under [place] law. [place] law prohibits you from making any further disclosure of this information unless further disclosure is expressly permitted by the written consent of the person to whom it pertains or is authorized by law. A general authorization for the release of medical or other information is not sufficient for this purpose. Hospital accepts no responsibility if the information is made available to any other person, INCLUDING THE PATIENT. Interpretation Summary * Name: MANUEL JAVED Study Date: 03/17/2017 06:55 AM BP: 128/75 mmHg * Patient Location: [id number].4E\[id number]\E421\S\1 HR: 77 * : 1945 (M/d/yyyy) Gender: Male Height: 67 in * Age: 72 yrs Ethnicity: CA Weight: 213 lb * Ordering Physician: Jorge Rosado * Referring Physician: Self, Referred * Performed By: Denisa Roche RDCS * * Reason For Study: Endocarditis * BSA: 2.1 m2 * Normal biventricular systolic function. * Left ventricular diastolic dysfunction. * No signifcant valvular abnormalities. * Mildly dilated aortic root and ascending aorta. * There is no evidence of a mass or vegetation. This does not rule out endocarditis. * -- Conclusions -- * Aortic valve sclerosis mild, without significant aortic valvular stenosis. Procedure Details * A complete two-dimensional transthoracic echocardiogram was performed (2D, M-mode, Doppler and color flow Doppler). Left Ventricle * The left ventricle is normal in size. * There is normal left ventricular wall thickness. * Ejection Fraction = 50-55%. * Left ventricular systolic function is low normal. * A full diastolic examination was done with clinical findings of Class I diastolic dysfunction. * No regional wall motion abnormalities noted. Right Ventricle * The right ventricle is normal in size and function. Atria * The left atrial size is normal. * Right atrial size is normal. * There is no evidence of atrial septal defect, but resolution does not allow assessment for a patent foramen ovale. Mitral Valve * There is mild mitral annular calcification. * There is no mitral valve stenosis. * There is trace mitral regurgitation. Tricuspid Valve * The tricuspid valve is normal. * There is no tricuspid stenosis. * No tricuspid regurgitation. Aortic Valve * The aortic valve is trileaflet. * The aortic valve opens well. * Aortic valve sclerosis mild, without significant aortic valvular stenosis. * Aortic stenosis is absent. * No aortic regurgitation is present. Pulmonic Valve * The pulmonary valve is inadequately visualized, but the Doppler data is adequate for interpretation. * There is no pulmonic valvular stenosis. * There is no pulmonic valvular regurgitation. Great Vessels * Mild aortic root dilatation. * Mildly dilated ascending aorta. * Normal inferior vena cava diameter and respiratory variation suggests normal central venous pressure. MMode 2D Measurements and Calculations IVSd 0.90 cm LVIDd 4.9 cm LVIDs 3.7 cm LVPWd 1.0 cm IVS/LVPW 0.87 FS 25.1 % EDV(Teich) 114.0 ml ESV(Teich) 57.6 ml EF(Teich) 49.5 % EDV(cubed) 119.2 ml ESV(cubed) 50.1 ml EF(cubed) 58.0 % LV mass(C)d 169.7 grams LV mass(C)dI 81.7 grams/m\S\2 SV(Teich) 56.4 ml SI(Teich) 27.2 ml/m\S\2 SV(cubed) 69.2 ml SI(cubed) 33.3 ml/m\S\2 Ao root diam 4.2 cm Ao root area 14.0 cm\S\2 ACS 2.0 cm LA dimension 3.8 cm asc Aorta Diam 4.2 cm LA/Ao 0.90 LVAd ap4 20.8 cm\S\2 LVLd ap4 5.8 cm EDV(MOD-sp4) 61.9 ml EDV(sp4-el) 63.0 ml LVAs ap4 12.8 cm\S\2 LVLs ap4 4.8 cm ESV(MOD-sp4) 28.8 ml ESV(sp4-el) 28.8 ml EF(MOD-sp4) 53.5 % EF(sp4-el) 54.2 % LVAd ap2 23.0 cm\S\2 LVLd ap2 6.8 cm EDV(MOD-sp2) 65.5 ml EDV(sp2-el) 66.1 ml LVAs ap2 13.4 cm\S\2 LVLs ap2 5.1 cm ESV(MOD-sp2) 29.9 ml ESV(sp2-el) 30.0 ml EF(MOD-sp2) 54.3 % EF(sp2-el) 54.6 % LVLd %diff 14.1 % EDV(MOD-bp) 68.8 ml LVLs %diff 5.6 % ESV(MOD-bp) 30.1 ml EF(MOD-bp) 56.3 % SV(MOD-sp4) 33.1 ml SI(MOD-sp4) 15.9 ml/m\S\2 SV(MOD-sp2) 35.6 ml SI(MOD-sp2) 17.1 ml/m\S\2 SV(MOD-bp) 38.7 ml SI(MOD-bp) 18.7 ml/m\S\2 SV(sp4-el) 34.1 ml SI(sp4-el) 16.4 ml/m\S\2 SV(sp2-el) 36.1 ml SI(sp2-el) 17.4 ml/m\S\2 Doppler Measurements and Calculations MV E max maldonado 72.3 cm/sec MV A max maldonado 87.4 cm/sec MV E/A 0.83 MV dec time 0.25 sec Ao V2 max 131.6 cm/sec Ao max PG 6.9 mmHg Ao max PG (full) 1.6 mmHg LV V1 max PG 5.3 mmHg LV V1 max 115.6 cm/sec PA V2 max 72.5 cm/sec PA max PG 2.1 mmHg PA acc slope 545.6 cm/sec\S\2 PA acc time 0.09 sec TR max maldonado 112.4 cm/sec PA pr(Accel) 39.4 mmHg
[2017-03-17 15:12] VITALS: BP 107/68; PULSE 106; TEMP 37.1; O2SAT 95
--- NOTE | 2017-03-17 15:15 | Progress Note ---
Subjective Date of Service: Mar 17, 2017. Subjective Pt evaluation today including: conversation w/ patient, conversation w/ family Pt is still with SOB at rest and with activity. It is improving, but slowly. Tolerating PO. States he has not had a bowel movement in a few days. No abd pain, but aware of this. He states he takes prune juice for this at home. Pt denies fever, chest pain, n/v, LE pain or swelling. Problem List Medical Problems: (1) Abdominal pain Status: Acute (2) Bilateral hydronephrosis Status: Acute (3) Bladder outlet obstruction Status: Acute (4) Enlarged prostate Status: Acute (5) Renal failure Status: Acute (6) Renal insufficiency Status: Acute Review of Systems All Other Systems: Reviewed and Negative Objective Vital Signs Date Time Temp Pulse Resp B/P (MAP) Pulse Ox O2 Delivery O2 Flow Rate FiO2 03/17/17 11:27 36.9 82 18 105/66 (79) 98 Nasal Cannula 2.0 03/17/17 08:00 Nasal Cannula 2.0 03/17/17 07:51 36.5 77 20 128/75 (92) 98 2.0 03/17/17 04:32 37.3 68 18 104/64 (77) 94 Nasal Cannula 2.0 03/17/17 00:05 Nasal Cannula 2.0 03/16/17 23:36 37.4 82 16 100/59 (73) 93 Room Air 03/16/17 20:05 Nasal Cannula 2.0 03/16/17 19:37 37.1 89 20 100/68 (79) 96 Room Air 03/16/17 16:00 Nasal Cannula 2.0 03/16/17 15:54 37.1 83 20 101/61 (74) 93 Room Air Physical Exam General Appearance: WD/WN, no apparent distress Eyes: normal inspection, EOMI ENT: hearing grossly normal Neck: supple Respiratory/Chest: no respiratory distress, + decreased breath sounds Cardiovascular: regular rate, rhythm, no edema Abdomen: non tender, soft Extremities: non-tender, no pedal edema Neurologic/Psychiatric: alert, oriented x 3 Skin: normal color, warm/dry Laboratory Results Last 24 Hours Test 03/17/17 06:18 White Blood Count 4.84 K/uL Red Blood Count 3.66 M/uL Hemoglobin 10.5 g/dL Hematocrit 31.1 % Mean Corpuscular Volume 85.0 fL Mean Corpuscular Hemoglobin 28.7 pg Mean Corpuscular Hemoglobin Concent 33.8 g/dl RDW Standard Deviation 44.8 fL RDW Coefficient of Variation 14.3 % Platelet Count 265 K/uL Mean Platelet Volume 10.7 fL Sodium Level 139 mmol/L Potassium Level 3.4 mmol/L Chloride Level 108 mmol/L Carbon Dioxide Level 24 mmol/L Anion Gap 7.0 mmol/L Blood Urea Nitrogen 11 mg/dl Creatinine 0.91 mg/dl Est Creatinine Clear Calc Drug Dose 77.5 ml/min Estimated GFR () 95.9 Estimated GFR (Non- 82.7 BUN/Creatinine Ratio 12.5 Random Glucose 125 mg/dl Calcium Level 7.9 mg/dl Total Bilirubin 0.3 mg/dl Aspartate Amino Transf (AST/SGOT) 46 U/L Alanine Aminotransferase (ALT/SGPT) 60 U/L Alkaline Phosphatase 80 U/L Total Protein 6.0 gm/dl Albumin 1.9 gm/dl Globulin 4.1 gm/dl Albumin/Globulin Ratio 0.5 Assessment and Plan 72 y/o M Hx prostate CA which is untreated, chronic urinary outlet obstruction and an indwelling Kumari. Pt presents with progressive b/l, lower abdominal and flank pain, unconfirmed fevers A CT abdomen reveals b/l perinephric stranding initially concern for pyelonephritis additionally seen metastatic prostate CA. did not respond to antibiotics initially rochephin, changed to zosyn, still fevers, CTA on 03/16 shows LLL Pneumonia Continued fever- IV Zosyn adding vancomycin on 03/[address] abd shows persistent perinephric stranding, CTA 03/16 shows LLL pneumonia Changed to Cefepime and levaquin as still with fevers on zosyn ID is following and is planning for 14 days total Blood cx neg Lyme and cdiff neg Urine cx neg Abdominal pain is improved with parenteral opiate therapy, continues to not seem consistent with gall bladder disease and no GB changes seen on CT, plus LFT 's ok Mild loose bowel movements no significant diarrhea will follow for concern for C. difficile and enteric seronegative Previously seen Dr. Graff for renal failure although his kidney function is good at this time Prostate CA -seems to be metastatic at this time no further visits from urology full code heparin for dvt
[2017-03-17] MEDS: LEVOFLOXACIN / D5W 750 MG in PREMIXED IN D5W 150 ML IV SCH (18:25)
[2017-03-17 20:09] VITALS: BP 125/73; PULSE 90; TEMP 36.9; O2SAT 95
[2017-03-17 23:29] VITALS: BP 103/65; PULSE 79; TEMP 36.8; O2SAT 95
[2017-03-18 04:18] VITALS: BP 102/60; PULSE 83; TEMP 36.9; O2SAT 93
[2017-03-18] MEDS: CEFEPIME IV 2,000 MG in DEXTROSE 5% 100ML 100 ML IV SCH (06:22)
[2017-03-18 07:35] VITALS: BP 119/74; PULSE 77; TEMP 36.8; O2SAT 94
[2017-03-18] MEDS: HEPARIN SOD 5000 UNIT/0.5 ML CARP SQ SCH ×3 (07:47→23:48)
[2017-03-18 07:55] LABS: BUN/CREATININE RATIO 12.7 (10-20); CALCIUM 8.3 mg/dl (8.5-10.1); CREATININE 0.88 mg/dl (0.60-1.40); POTASSIUM 3.5 mmol/L (3.5-5.1)
[2017-03-18 07:58] LABS: ALB/GLOB RATIO 0.5 (0.9-2)
[2017-03-18 11:06] VITALS: BP 112/69; PULSE 79; TEMP 36.9; O2SAT 96
[2017-03-18] MEDS ORDERED: VANCOMYCIN TROUGH ONE (13:30)
[2017-03-18] MEDS ORDERED: COUGH DROP (SUGAR FREE) LOZ 24 LOZ/1 BOX ONE (13:59)
[2017-03-18] MEDS ORDERED: NURSING DECISION MEDICATION ORDER SCH (14:00)
[2017-03-18] MEDS ORDERED: LEVOFLOXACIN 750 MG TAB PO ONE (14:15)
[2017-03-18] MEDS ORDERED: COUGH DROP (SUGAR FREE) LOZ 24 LOZ/1 BOX PO PRN (14:15)
--- NOTE | 2017-03-18 14:43 | Progress Note ---
Subjective Date of Service: Mar 18, 2017. Subjective Pt evaluation today including: conversation w/ patient, conversation w/ family , physical exam, chart review, lab review feeling much better today, asking to be d/c home. tolerating abx, no f/c. all cultures negative, no abd pain, no n/v/d. no gu complaints. all remaining ros reviewed and are negative. Problem List Medical Problems: (1) Abdominal pain Status: Acute (2) Bilateral hydronephrosis Status: Acute (3) Bladder outlet obstruction Status: Acute (4) Enlarged prostate Status: Acute (5) Renal failure Status: Acute (6) Renal insufficiency Status: Acute Objective Vital Signs Date Time Temp Pulse Resp B/P (MAP) Pulse Ox O2 Delivery O2 Flow Rate FiO2 03/18/17 11:06 36.9 79 20 112/69 (83) 96 Room Air 03/18/17 08:00 Room Air 03/18/17 07:35 36.8 77 20 119/74 (89) 94 Room Air 03/18/17 04:18 36.9 83 18 102/60 (74) 93 Room Air 03/17/17 23:29 36.8 79 18 103/65 (78) 95 Room Air 03/17/17 20:09 36.9 90 18 125/73 (90) 95 Nasal Cannula 2.0 03/17/17 20:03 Nasal Cannula 2.0 03/17/17 16:00 Nasal Cannula 2.0 03/17/17 15:12 37.1 106 22 107/68 (81) 95 Room Air Physical Exam General Appearance: WD/WN, no apparent distress Eyes: normal inspection, EOMI Neck: supple Respiratory/Chest: lungs clear, normal breath sounds, no respiratory distress Cardiovascular: regular rate, rhythm, no edema Abdomen: non tender, soft Extremities: non-tender, normal inspection, no pedal edema Neurologic/Psychiatric: alert, oriented x 3 Skin: normal color, warm/dry, no rash Laboratory Results Item Value Date Time Blood Culture - Preliminary Resulted 03/14/17 1058 Blood NO GROWTH TO DATE. Blood Culture - Preliminary Resulted 03/14/17 1043 Blood NO GROWTH TO DATE. Urine Culture - Final Complete 03/12/17 2210 Urine,Catheterized NO GROWTH - LESS THAN 1,000 COLONIES/ML Last 24 Hours Test 03/18/17 07:08 03/18/17 13:52 Sodium Level 138 mmol/L Potassium Level 3.5 mmol/L Chloride Level 108 mmol/L Carbon Dioxide Level 24 mmol/L Anion Gap 6.0 mmol/L Blood Urea Nitrogen 11 mg/dl Creatinine 0.88 mg/dl Est Creatinine Clear Calc Drug Dose 79.6 ml/min Estimated GFR () 98.1 Estimated GFR (Non- 84.6 BUN/Creatinine Ratio 12.7 Random Glucose 140 mg/dl Calcium Level 8.3 mg/dl Total Bilirubin 0.3 mg/dl Aspartate Amino Transf (AST/SGOT) 56 U/L Alanine Aminotransferase (ALT/SGPT) 66 U/L Alkaline Phosphatase 80 U/L Total Protein 6.1 gm/dl Albumin 2.0 gm/dl Globulin 4.1 gm/dl Albumin/Globulin Ratio 0.5 Assessment and Plan (1) Pyelonephritis Assessment & Plan: continue current abx, no pathogen identified but improving radiographic findings and now afebrile. would give 14 days total, if continues to improve, would narrow to complete course of po levaquin. blood culture remain negative. ok for d/c from ID standpoint
[2017-03-18 15:11] VITALS: BP 112/69; PULSE 80; TEMP 36.8; O2SAT 96
--- NOTE | 2017-03-18 17:13 | Progress Note ---
Subjective Date of Service: Mar 18, 2017. Subjective Pt evaluation today including: conversation w/ patient, conversation w/ family Pt states he feels much improved over yesterday. Has been OOB and ambulating without much SOB. Tolerating PO. Overall just feeling better. Pt denies fever , chest pain, abd pain, n/v/c/d, LE pain or swelling. Problem List Medical Problems: (1) Abdominal pain Status: Acute (2) Bilateral hydronephrosis Status: Acute (3) Bladder outlet obstruction Status: Acute (4) Enlarged prostate Status: Acute (5) Renal failure Status: Acute (6) Renal insufficiency Status: Acute Review of Systems All Other Systems: Reviewed and Negative Objective Vital Signs Date Time Temp Pulse Resp B/P (MAP) Pulse Ox O2 Delivery O2 Flow Rate FiO2 03/18/17 15:11 36.8 80 18 112/69 (83) 96 Room Air 03/18/17 11:06 36.9 79 20 112/69 (83) 96 Room Air 03/18/17 08:00 Room Air 03/18/17 07:35 36.8 77 20 119/74 (89) 94 Room Air 03/18/17 04:18 36.9 83 18 102/60 (74) 93 Room Air 03/17/17 23:29 36.8 79 18 103/65 (78) 95 Room Air 03/17/17 20:09 36.9 90 18 125/73 (90) 95 Nasal Cannula 2.0 03/17/17 20:03 Nasal Cannula 2.0 Physical Exam Comments: General Appearance: WD/WN, no apparent distress Eyes: normal inspection, EOMI Respiratory/Chest: no respiratory distress, decreased breath sounds--much improved Cardiovascular: regular rate, rhythm, no edema Abdomen: non tender, soft Extremities: non-tender, no pedal edema Neurologic/Psychiatric: alert, oriented x 3 Skin: normal color, warm/dry Laboratory Results Last 24 Hours Test 03/18/17 07:08 03/18/17 13:52 Sodium Level 138 mmol/L Potassium Level 3.5 mmol/L Chloride Level 108 mmol/L Carbon Dioxide Level 24 mmol/L Anion Gap 6.0 mmol/L Blood Urea Nitrogen 11 mg/dl Creatinine 0.88 mg/dl Est Creatinine Clear Calc Drug Dose 79.6 ml/min Estimated GFR () 98.1 Estimated GFR (Non- 84.6 BUN/Creatinine Ratio 12.7 Random Glucose 140 mg/dl Calcium Level 8.3 mg/dl Total Bilirubin 0.3 mg/dl Aspartate Amino Transf (AST/SGOT) 56 U/L Alanine Aminotransferase (ALT/SGPT) 66 U/L Alkaline Phosphatase 80 U/L Total Protein 6.1 gm/dl Albumin 2.0 gm/dl Globulin 4.1 gm/dl Albumin/Globulin Ratio 0.5 Vancomycin Level Trough 4.7 mcg/ml Assessment and Plan 72 y/o M Hx prostate CA which is untreated, chronic urinary outlet obstruction and an indwelling Kumari. Pt presents with progressive b/l, lower abdominal and flank pain, unconfirmed fevers A CT abdomen reveals b/l perinephric stranding initially concern for pyelonephritis additionally seen metastatic prostate CA. did not respond to antibiotics initially rochephin, changed to zosyn, still fevers, CTA on 03/16 shows LLL Pneumonia Continued fever- IV Zosyn adding vancomycin on 03/[address] abd shows persistent perinephric stranding, CTA 03/16 shows LLL pneumonia Changed to Cefepime and levaquin as still with fevers on zosyn -> PO levaquin 03/18 given improvement ID is following and is planning for 14 days total Blood cx neg Lyme and cdiff neg Urine cx neg Abdominal pain is improved with parenteral opiate therapy, continues to not seem consistent with gall bladder disease and no GB changes seen on CT, plus LFT 's ok Previously seen Dr. Graff for renal failure although his kidney function is good at this time Prostate CA -seems to be metastatic at this time no further visits from urology as pt is pursuing herbal tx full code heparin for dvt
[2017-03-18 19:10] VITALS: BP 123/72; PULSE 81; TEMP 36.8; O2SAT 98
[2017-03-18 23:48] VITALS: BP 131/76; PULSE 80; TEMP 36.9; O2SAT 96
[2017-03-19 04:45] VITALS: BP 129/71; PULSE 81; TEMP 36.9; O2SAT 97
[2017-03-19 06:27] LABS: BUN/CREATININE RATIO 13.2 (10-20); CALCIUM 8.8 mg/dl (8.5-10.1); CREATININE 0.92 mg/dl (0.60-1.40); POTASSIUM 3.6 mmol/L (3.5-5.1)
[2017-03-19 06:30] LABS: ALB/GLOB RATIO 0.5 (0.9-2)
[2017-03-19 07:15] VITALS: BP 126/77; PULSE 75; TEMP 36.7
[2017-03-19 07:22] VITALS: O2SAT 98
[2017-03-19 07:26] VITALS: O2SAT 98
[2017-03-19] MEDS: HEPARIN SOD 5000 UNIT/0.5 ML CARP SQ SCH (07:59)
[2017-03-19 08:30] VITALS: O2SAT 98
[2017-03-19] MEDS ORDERED: LEVOFLOXACIN 750 MG TAB PO SCH (11:00)
[2017-03-19] MEDS ORDERED: LVQ750 PO (11:48)
--- NOTE | 2017-03-19 11:50 | Discharge Instructions ---
Discharge Instructions Date of Service Mar 19, 2017. Admission Reason for Admission: Pyelonephritis Discharge Discharge Diagnosis / Problem: Pneumonia Discharge Goals Goal(s): Decrease discomfort, Improve function, Increase independence Activity Recommendations Activity Limitations: resume your previous activity . Instructions / Follow-Up Instructions / Follow-Up You should see WILLIE Jackson early next week Current Hospital Diet Patient's current hospital diet: AHA Diet (Heart Healthy) Discharge Diet Recommended Diet: Regular Diet Pending Studies Studies pending at discharge: no Medical Emergencies . Who to Call and When: Medical Emergencies: If at any time you feel your situation is an emergency, please call 911 immediately. . Non-Emergent Contact Non-Emergency issues call your: Primary Care Provider . . "Provider Documentation" section prepared by Paola Morse. . VTE Core Measure Inpt VTE Proph given/why not?: Unfractionated heparin SQ
--- NOTE | 2017-03-19 11:52 | Discharge Summary ---
Discharge Summary Date of Service Mar 19, 2017. Discharge Summary Admission Date: Mar 11, 2017 at 12:43 Discharge Date: Mar 19, 2017 Discharge Disposition: Home Principal Diagnosis: PNA Problems/Secondary Diagnoses: Prostate cancer Consultations: Urology ID Medication Reconciliation New Medications: Levofloxacin (Levofloxacin) 750 Mg Tab 750 MG PO DAILY@11 for 10 Days, #10 TAB Continued Medications: Furosemide (Furosemide) 20 Mg Tab 20 MG PO DAILY Discharge Exam Pt is feeling much improved. No SOB or chest pain. Has been ambulating without issue. Has had some issue with PO due to the food at the hospital being more greasy than food at home, but tolerating what he does eat. Bowel movements have returned to his usual. Pt denies fever, abd pain, n/v/c/d, LE pain or swelling. Pertinent positives and negatives reviewed in HPI--all others negative Physical Exam: General Appearance: WD/WN, no apparent distress Respiratory/Chest: normal breath sounds, no respiratory distress Cardiovascular: regular rate, rhythm, no edema Abdomen / GI: non tender, soft Extremities: no calf tenderness, no pedal edema Neurologic/Psychiatric: alert, normal mood/affect, oriented x 3 Skin: normal color, warm/dry Hospital Course 72 y/o M Hx prostate CA which is untreated, chronic urinary outlet obstruction and an indwelling Kumari. Pt presents with progressive b/l, lower abdominal and flank pain, unconfirmed fevers A CT abdomen reveals b/l perinephric stranding initially concern for pyelonephritis additionally seen metastatic prostate CA. did not respond to antibiotics initially rochephin, changed to zosyn, still fevers, CTA on 03/16 shows LLL Pneumonia Continued fever- CTA 03/16 shows LLL pneumonia Changed to Cefepime and levaquin as still with fevers on zosyn -> PO levaquin 03/18 given improvement and will d/c on levaquin to finish 14 day total course Blood cx neg Lyme and cdiff neg Urine cx neg Abdominal pain is improved with parenteral opiate therapy, continues to not seem consistent with gall bladder disease and no GB changes seen on CT, plus LFT 's ok Previously saw Dr. Graff for renal failure although his kidney function is WNL during admission Prostate CA -seems to be metastatic at this time no further visits from urology as pt is pursuing herbal tx Total Time Spent: Greater than 30 minutes This includes examination of the patient, discharge planning, medication reconciliation, and communication with other providers. Discharge Instructions Please refer to the electronic Patient Visit Report (Discharge Instructions) for additional information. Follow-Up WILLIE Jackson early next week Additional Copies To Katt John.
[2017-03-19 11:58] VITALS: BP 126/77; PULSE 75; TEMP 36.7; O2SAT 98
== END 2017-03-19 13:30 | disposition home or self-care (01) | DRG 194 ==
LOC: C.EDB 09:03 → C.4E 12:43 → EDBEDREQSVC 13:03 → EDBEDREQ 13:03 → ENRESERV 13:20
PROVIDERS: ADMIT Internal Medicine; ATTEND Family Medicine
DX: J18.9 Pneumonia, unspecified organism (principal); C77.5 Secondary and unspecified malignant neoplasm of intrapelvic lymph nodes; C79.51 Secondary malignant neoplasm of bone; C61 Malignant neoplasm of prostate; N18.9 Chronic kidney disease, unspecified; I12.9 Hypertensive chronic kidney disease with stage 1 through stage 4 chronic kidney disease, or unspecified chronic kidney disease; N13.9 Obstructive and reflux uropathy, unspecified; Z96.0 Presence of urogenital implants; R10.9 Unspecified abdominal pain; Z87.448 Personal history of other diseases of urinary system; Z82.49 Family history of ischemic heart disease and other diseases of the circulatory system; Z84.1 Family history of disorders of kidney and ureter; Z79.899 Other long term (current) drug therapy

== ENCOUNTER → 2017-11-14 | Outpatient (CLI) | payer OTHER ==
[~2017-11-14] MED LIST changes: -CSD50 PO; -FLM4 PO; +LSX20 PO; +LVQ750 PO; -NRV5 PO; -TYL325X PO; -ULT50X PO
--- NOTE | 2017-11-14 12:33 | DIAGNOSTIC IMAGING REPORT ---
ULTRASOUND R VENOUS DOPP LOWER EXT UNILAT CLINICAL HISTORY: M79.89 Right leg swelling COMPARISON STUDY: No previous studies for comparison. FINDINGS: Real-time and color flow Doppler imaging were performed. Flow was seen within the femoral, popliteal and calf veins with no intraluminal thrombus demonstrated. The saphenous vein is patent. IMPRESSION: No evidence of right lower extremity DVT. Electronically signed by: Ramin Martin M.D. 11/14/2017 12:31 PM Dictated Date/Time: 11/14/2017 12:31 PM
== END | disposition home or self-care (01) ==
LOC: C.ULTR 11:44
PROVIDERS: ATTEND Physician Assistant
DX: M79.89 Other specified soft tissue disorders (principal)

== ENCOUNTER → 2017-11-18 | Outpatient (CLI) | payer OTHER ==
--- NOTE | 2017-11-18 16:02 | DIAGNOSTIC IMAGING REPORT ---
RIGHT LEG OR DOPPLER STUDY CLINICAL HISTORY: Right leg swelling. COMPARISON STUDY: None. FINDINGS: Normal biphasic to triphasic waveforms and velocities seen with throughout the right lower extremity arterial system. No areas of arterial occlusion identified. The right ankle-brachial index measured with the posterior tibial artery was 1.21 and the dorsalis pedis artery was 1.27. The left ankle-brachial index was 1.24-1.1. Subcutaneous edema throughout the right lower extremity. There is an enlarged right inguinal lymph node measuring 3.7 x 3.1 x 2.2 cm. This demonstrates a thickened cortex. IMPRESSION: 1. No significant stenosis or occlusion within the right lower extremity arterial system. 2. An enlarged right inguinal lymph node. This could be reactive. Consider follow-up to ensure resolution and to exclude the possibility of a neoplastic process. 3. Right lower extremity subcutaneous edema. Electronically signed by: Caleb Hale M.D. 11/18/2017 4:00 PM Dictated Date/Time: 11/18/2017 3:58 PM
== END | disposition home or self-care (01) ==
LOC: C.ULTR 14:13
PROVIDERS: ATTEND Physician Assistant
DX: M79.89 Other specified soft tissue disorders (principal); R59.0 Localized enlarged lymph nodes